=== PATIENT | female | born 1965 | race African-American/Black ===

== ENCOUNTER 2017-05-11 12:21 | Outpatient (CLI) | payer OTHER ==
--- NOTE | 2017-05-11 13:33 | ULT ---
RIGHT BREAST ULTRASOUND: History: Follow up right breast cyst. Comparison: 11-01-16 FINDINGS: The cystic appearing lesion at the 10 o'clock position 15 cm from the nipple noted on the previous e xam is no longer seen. No solid mass or other findings. IMPRESSION: Interval resolution of the complex cyst within the right breast. POS: OFF
== END 2017-05-11 12:22 | disposition home or self-care (01) ==
LOC: ULT 12:21
PROVIDERS: ATTEND Internal Medicine
DX: N60.01 Solitary cyst of right breast (principal)

== ENCOUNTER 2018-09-11 10:21 | Outpatient (CLI) | payer OTHER ==
--- NOTE | 2018-09-11 12:01 | RAD ---
RIGHT KNEE THREE VIEWS: HISTORY: Right medial knee pain. COMPARISON: 10/10/2014 FINDINGS: The well corticated density medial to the medial femoral condyle, likely representing old injury to t he medial collateral ligament, is redemonstrated. There are mild degenerative changes. No acute fra cture, dislocation, or bony destruction is seen. A joint effusion is present. POS: OFF
== END 2018-09-11 10:22 | disposition home or self-care (01) ==
LOC: BICRAD 10:21
PROVIDERS: ATTEND Internal Medicine
DX: M25.561 Pain in right knee (principal)
CPT/HCPCS: 80053; 80061; 82607; 82728; 82746; 83036; 83540; 83550; 85025

== ENCOUNTER 2018-09-27 14:13 | Outpatient (CLI) | payer OTHER ==
--- NOTE | 2018-09-27 16:14 | MRI ---
MRI OF THE RIGHT KNEE: Date: 09-27-18 Provided Clinical History: Right knee pain. FINDINGS: Evaluation is limited by patient motion and patient body habitus. Proximal intact fibers of the anterior cruciate ligament are not identified and there is an abnormal horizontal course of the ACL on the sagittal images, compatible with prior proximal disruption. The p osterior cruciate ligament, medial collateral ligament, and lateral collateral ligamentous complex de monstrate an intact MR appearance, as does the extensor mechanism. There is complex tearing involving the body and posterior horn of the medial meniscus. The posterior horn of the medial meniscus appears diminutive, however, no definite meniscal displacement is identif ied. There is a complex tear involving the body of the lateral meniscus with probable adjacent paramenisca l cyst formation within the region of the lateral meniscal femoral recess. There is extensive articular cartilage loss involving the central weightbearing portions of both the medial and lateral femorotibial joints. There is largely cartilage absence involving large portions o f the articular cartilage, tricompartmental, notably at the median ridge and central weightbearing po rtions of the lateral arterial joint. There is prominent reactive marrow signal alteration within the lateral femoral condyle and lateral t ibial plateau. There is subcortical ====== change present involving the lateral tibial plateau. There is probable low grade osteochondral lesion at the posterior aspect of the lateral femoral condyle me asuring about 11 mm. There is conspicuous red marrow reconversion involving the distal femur and to a lesser extent the pr oximal tibia. There is a large knee joint effusion. No focal concerning regional muscular signal abnormality is princess dent. IMPRESSION: 1. ACL insufficiency. 2. 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 3. Medial and lateral meniscal tears as above. 4. Large knee joint effusion. POS: OFF
--- NOTE | 2018-10-04 08:30 | MMO ---
Bilateral MAMMO Bilat Screen [facility]. CLINICAL HISTORY: Patient is 53 years old and is seen for screening. The patient has no family history of breast cancer. The patient has no personal history of cancer. VIEWS: The views performed were: bilateral craniocaudal; bilateral craniocaudal with tomosynthesis; bilateral mediolateral oblique; and bilateral mediolateral oblique with tomosynthesis. FILMS COMPARED: The present examination has been compared to prior imaging studies performed at [facility] on 10/10/2014, 12/17/2015 and 11/01/2016. MAMMOGRAM FINDINGS: There are scattered fibroglandular densities. There are no suspicious masses, calcifications or areas of architectural distortion. IMPRESSION: THERE IS NO MAMMOGRAPHIC EVIDENCE OF MALIGNANCY. A ROUTINE FOLLOW-UP MAMMOGRAM IN 1 YEAR IS RECOMMENDED. THE RESULTS OF THIS EXAM WERE SENT TO THE PATIENT. ACR BI-RADS Category 1 - Negative MAMMOGRAPHY NOTE: 1. A negative mammogram report should not delay a biopsy if a dominant of clinically suspicious mass is present. 2. Approximately 10% to 15% of breast cancers are not detected by mammography. 3. Adenosis and dense breasts may obscure an underlying neoplasm.
== END 2018-09-27 14:14 | disposition home or self-care (01) ==
LOC: BICMRI 14:13
PROVIDERS: ATTEND Internal Medicine
DX: Z12.31 Encounter for screening mammogram for malignant neoplasm of breast (principal); M25.561 Pain in right knee; S83.271A Complex tear of lateral meniscus, current injury, right knee, initial encounter; S83.231A Complex tear of medial meniscus, current injury, right knee, initial encounter; M25.461 Effusion, right knee; M89.9 Disorder of bone, unspecified
CPT/HCPCS: 77063; 77067

== ENCOUNTER 2019-09-08 10:26 | Emergency (ER) | payer OTHER, SELFPAY ==
--- NOTE | 2019-09-08 11:20 | RAD ---
RIGHT KNEE FOUR VIEWS: HISTORY: Right knee pain. Rheumatoid arthritis. FINDINGS: There are arthritic changes of the knee. Changes are mainly related to lateral compartment joint spac e narrowing. There are some subchondral bony changes along the lateral femoral condyle. Could be an u nderlying insufficiency fracture, given the bony demineralization. Arthritic changes of the patellofe moral joint space are seen. No joint effusion. IMPRESSION: Moderate arthritic changes of the knee. POS: ROSELINE
[2019-09-08] MEDS ORDERED: Acetaminophen/Codeine 30-300mg Tablet ONE (12:46)
== END 2019-09-08 13:00 | disposition home or self-care (01) ==
LOC: ERS 10:26
DX: M17.11 Unilateral primary osteoarthritis, right knee (principal); I50.9 Heart failure, unspecified; Z79.899 Other long term (current) drug therapy

== ENCOUNTER 2019-10-03 09:10 | Outpatient (CLI) | payer OTHER ==
[2019-10-03 14:13] LABS: #Eosinphils 0.2 thou/uL (0.0-0.7); #Lymphocytes 1.7 thou/uL (1.20-3.40); #Monocytes 0.5 thou/uL (0.11-0.59); #Neutrophils 3.8 thou/uL (1.40-6.50); %Basophils 0.7 % (0.0-1.0); %Eosinophils 3.4 % (0.0-10.0); %Lymphocytes 26.9 % (21.0-51.0); %Monocytes 8.1 % (0.0-10.0); %Neutrophils 60.9 % (42.0-75.0); Mean Corpuscular HGB CONC 34.1 g/dL (32.0-36.0); Mean Corpuscular Hemoglobin 28.5 pg (27.0-31.0); Mean Corpuscular Volume 83.7 fL (78.0-98.0); Mean Platelet Volume 6.8 fL (7.4-10.4); Platelet Count 318 thou/uL (130-400); RBC Distribution Width 13.7 % (11.5-14.5); Red Blood Cell (RBC) Count 4.57 mill/uL (4.20-5.40); White Blood Cell (WBC) Count 6.3 thou/uL (4.8-10.8)
[2019-10-03 14:17] LABS: Prothrombin Time 12.7 SEC (12.0-14.7)
[2019-10-03 14:35] LABS: Anion Gap 13 mmol/L (10-20); BUN (Urea Nitrogen) 6 mg/dL (9.8-20.1); Calc. Creatinine Clearance 0 mL/min (70-130); Calcium 9.7 mg/dL (7.8-10.44); Carbon Dioxide 24 mmol/L (22-29); Chloride 108 mmol/L (98-107); Estimated GFR-MDRD Greater than 90; Glucose 84 mg/dL (70-105); Potassium 4.2 mmol/L (3.5-5.1); Sodium 141 mmol/L (136-145)
== END 2019-10-03 09:11 | disposition home or self-care (01) ==
LOC: LABBT 09:10
PROVIDERS: ATTEND Orthopaedic Surgery
DX: Z01.812 Encounter for preprocedural laboratory examination (principal); M17.11 Unilateral primary osteoarthritis, right knee
CPT/HCPCS: 80048; 85025; 85610; 87081

== ENCOUNTER 2019-10-03 13:30 | Inpatient (IN) | payer OTHER ==
[2019-10-15] MEDS ORDERED: Vancomycin 1.5 GRAM/300 ML BAG 1.5 GM/300 ML BAG ONE (06:00)
[2019-10-15] MEDS ORDERED: Sodium Chloride 0.9% 100 ML ONE (06:00)
[2019-10-15] MEDS ORDERED: Tranexamic Acid 1,000 MG/10 ML VIAL ONE (06:00)
[2019-10-15] MEDS ORDERED: Bupivacaine 0.25% HCL 30 ML VIAL ONE (06:28)
[2019-10-15] MEDS ORDERED: Midazolam HCl 2 mg/2 ml Vial ONE (06:34)
[2019-10-15] MEDS ORDERED: Lidocaine 1% (PF) 30 ML VIAL ONE (06:34)
[2019-10-15] MEDS ORDERED: Fentanyl 100 MCG/2 ML VIAL ONE ×4 (06:34→10:13)
[2019-10-15] MEDS ORDERED: Famotidine/PF 20 mg/2ml Vial ONE (06:39)
[2019-10-15] MEDS ORDERED: Promethazine HCl 25 MG/ML VIAL IM PRN ×3 (07:17→11:22)
[2019-10-15] MEDS ORDERED: Zolpidem Tartrate 5 MG TAB PO PRN ×2 (07:17→11:22)
[2019-10-15] MEDS ORDERED: Ropivacaine HCl/PF 250 ML in Premix Bag 1 BAG NERVE BLCK SCH (07:17)
[2019-10-15] MEDS ORDERED: Acetaminophen 325 MG TAB PO PRN ×2 (07:17→11:22)
[2019-10-15] MEDS ORDERED: Ketorolac Tromethamine 30 MG/ML VIAL IVP PRN ×2 (07:17→08:23)
[2019-10-15] MEDS ORDERED: Ondansetron PF 4 MG/2 ML Vial IVP PRN ×2 (07:17→11:22)
[2019-10-15] MEDS ORDERED: traMADol HCl 50 MG TAB PO PRN ×3 (07:17→11:22)
[2019-10-15] MEDS ORDERED: HYDROcodone/Acetaminophen 10/325 mg Tablet PO PRN ×2 (07:17)
[2019-10-15] MEDS ORDERED: Fentanyl 100 MCG/2 ML VIAL SLOW IVP PRN ×3 (07:18→11:22)
[2019-10-15] MEDS ORDERED: Lidocaine 1% w/Epinephrine 1:100K 20 ML VIAL ONE (07:59)
[2019-10-15] MEDS ORDERED: Promethazine HCl 25 MG/ML VIAL SLOW IVP PRN (08:23)
[2019-10-15] MEDS ORDERED: Meperidine HCl/PF 25 MG/ML VIAL SLOW IVP PRN (08:23)
[2019-10-15] MEDS ORDERED: PACU-Morphine 4MG/ML VIAL SLOW IVP PRN (08:23)
[2019-10-15] MEDS ORDERED: hydrALAZINE 20 MG/ML VIAL ONE ×3 (08:28→09:47)
--- NOTE | 2019-10-15 08:56 | HP ---
HISTORY OF PRESENT ILLNESS: Ms. Pedro Babin is a 54-year-old female, who presented with right knee pain that has lasted for several years. She says the pain is getting worse. She is having difficulty mobilizing and ambulating because of the pain. Pain is in the lateral aspect of her knee. She has failed conservative measures. Disrupting her sleep and activities. The patient has history of RA, history of heart failure. The patient has stopped her methotrexate as well as her Plaquenil. The patient's pain today is 10/10. She has been cleared by Cardiology. PAST MEDICAL HISTORY: Congestive heart failure, gastroesophageal reflux, hypertension, iron deficiency anemia, and previous negative HPV and biopsies. PAST SURGICAL HISTORY: Hysterectomy, tubal ligations. MEDICATIONS: Include; 1. Tylenol. 2. Lipitor. 3. Plaquenil. 4. Meloxicam. 5. Methotrexate. 6. Metoprolol. 7. Omeprazole. 8. Potassium. ALLERGIES: INCLUDE LATEX POWDERED GLOVES. SOCIAL HISTORY: The patient is a nonsmoker. 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 The patient denies illicit drug use. PHYSICAL EXAMINATION: GENERAL: Alert and oriented female, in no acute distress. EXTREMITIES: The patient has moderate valgus, which is correctable. She has lateral medial joint line tenderness. Pain with motion is 10 to 100 degrees. She has crepitus. Her ligaments appear stable. She is neurovascularly intact distally. She has tricompartmental changes with marginal osteophytes with valgus angulation. IMPRESSION: Arthritis, right knee. PLAN: I discussed with the patient due to failure of conservative measures, she desires to proceed right total knee arthroplasty. I discussed the risks and benefits of surgery to include, pain, scar, bleeding, infection, decreased range of motion and strength, fracture above or below the stem, failure of hardware, need for hardware removal, damage to vital structures, nerves, arteries, tendons, bone, loss of life or limb, blood clots, risk of anesthesia. The patient was screened, she was afebrile, no sick contacts for the last 3 weeks. She elects to proceed with surgery. Job ID: [id number] [facility]TDD
[2019-10-15] MEDS ORDERED: HYDROmorphone 2 MG/ML VIAL ONE (09:17)
[2019-10-15] MEDS ORDERED: Ketorolac Tromethamine 30 MG/ML VIAL ONE ×2 (09:17→10:01)
[2019-10-15] MEDS ORDERED: Ondansetron PF 4 MG/2 ML Vial ONE (10:01)
[2019-10-15] MEDS ORDERED: Ropivacaine 0.2% HCl/PF (40 MG/20 ML VIAL) ONE (10:01)
[2019-10-15] MEDS ORDERED: Lidocaine 1% PF 5 ML VIAL ONE (10:01)
[2019-10-15] MEDS ORDERED: PROPOFOL 200 MG/20 ML VIAL ONE (10:01)
[2019-10-15] MEDS ORDERED: Ropivacaine 0.5% HCl/PF (150 MG/30 ML VIAL) ONE (10:01)
[2019-10-15] MEDS ORDERED: EPINEPHrine 1 MG/10 ML Abboject SYRINGE ONE (10:01)
[2019-10-15] MEDS ORDERED: Dexamethasone 20 MG/5 ML VIAL ONE (10:01)
--- NOTE | 2019-10-15 10:09 | RAD ---
XR Knee Rt 2 View: 10/15/2019 9:42 AM CLINICAL INDICATION: Right total knee replacement COMPARISON: None. FINDINGS: Bones: No acute fracture is demonstrated. Joints: There is a right total knee prosthesis that projects in the expected position. There is intra -articular and scattered periarticular soft tissue gas consistent with patient's recent postoperative state.. Soft Tissue: No acute abnormality.. IMPRESSION: Postoperative right knee.
[2019-10-15 11:07] VITALS: BMI 49.7
[2019-10-15] MEDS ORDERED: diphenhydrAMINE 25 MG CAP PO PRN (11:22)
[2019-10-15] MEDS: Sodium Chloride 0.9% 1,000 ML IV SCH ×2 (13:11→23:18)
[2019-10-15] MEDS: CEFAZOLIN 2 GM in Premix Bag 1 BAG IVPB SCH ×2 (13:11→21:12)
--- NOTE | 2019-10-15 14:21 | OP ---
DATE OF PROCEDURE: 10/15/2019 PREOPERATIVE DIAGNOSIS: Right knee rheumatoid arthritis. POSTOPERATIVE DIAGNOSIS: Right knee rheumatoid arthritis. PROCEDURE PERFORMED: Right total knee arthroplasty. INDUSTRIAL STAFF NURSE: Nik Burkett PA-C ANESTHESIOLOGIST: Jaycee Card MD. ANESTHESIA: The patient received LMA with an adductor canal single-shot sciatic. ESTIMATED BLOOD LOSS: 100 mL. TOURNIQUET TIME: 71 minutes at 300 mmHg. ANTIBIOTICS: Ancef 2 g, vancomycin 1.5 g, and TXA 1 g. The patient had a Triathlon size #3 TR femur, a #2 tibial baseplate, two 9 mm X3 poly, and S27 patella X3. HISTORY OF PRESENT ILLNESS: The patient is a 54-year-old female, who presents with right knee pain. The patient has difficulty walking. Her pain is 10/10. She has difficulty mobilizing because of her pain. I discussed with the patient and family the risks and benefits of right total knee arthroplasty to include, pain, scar, bleeding, infection, damage to vital structures, decreased range of motion and strength, continued pain despite surgical intervention, loss of life or limb. The patient and family understood the risks and benefits of the procedure and elected to proceed. DESCRIPTION OF PROCEDURE: Time-out was performed designating the patient's right lower extremity as the operative site based on site, consent, and marking. After time-out, the patient's right lower extremity was prepped and draped in sterile fashion. Tourniquet was brought up and left for 71 minutes. Anterior midline approach, medial patellar arthrotomy was exposed. We did a medial soft tissue release and patellar fat pad and everted the patella before we mapped out the distal femur, cut 0 degrees varus and valgus and 4 degrees slope, 9 and 4, 9 medially and 4 laterally with 4 degrees anterior slope, removed the osteophytes, removed the bone. We then had the knee flexed, placed our pickle fork into position, put a 3 external rotation guide, mapped on the epicondyle. We cut and sized to a 3, cut all, pinned our tray, cut anterior, posterior, and chamfer cuts, removed the osteophytes. We placed our pickle fork in position, released our PCL. We put our pickle fork in place. We mapped out our tibia and pinned our tray into position. We mapped out our tibia and cut 4 and 2 laterally, 4 degrees posterior slope, removed the sliver. We decompressed the joint removing menisci and osteophytes. We pinned our size 2 tray into position, 9 poly, put the femur in position. We pivoted just a little internally to get good alignment of the femur and tibia. I liked the overall alignment of the entire limb. We flexed and extended varus and valgus, overall it was good. We everted the patella, cut down from 22 or 23 down to about 12 mm, we placed S27 patella, tracked well. After we drilled our lugs, we tracked well. We then everted and drilled our holes from our femur, cut our keel for our tibia, removed the implant, cemented our tibia and removed the excess cement and placed our poly, cemented our femur, removed excess cement and cemented our patella, removed excess cement, washed the joint to ensure removal of debride, and closed_the arthrotomy with #2 Vicryl, #2 Quill, 0 Quill, 2-0 Quill, and glue. The patient will be weightbearing as tolerated. The patient will be followed up in-house. Will need discharge to [facility] and will be admitted. Job ID: [id number] [facility]
--- NOTE | 2019-10-15 15:34 | PDOC.HOSPP ---
- Subjective Encounter Date: 10/15/19 Encounter Time: 15:33 Subjective: pt is admitted for right TKR, we are consulted for medical management Patient seen and examined. No new complaints. - Objective Vital Signs & Weight: Vital Signs (12 hours) Temp Pulse Resp BP Pulse Ox 10/15/19 10:45 97.9 F 97 18 93/62 96 Weight Weight 230 lb I&O: 10/14/19 10/15/19 10/16/19 06:59 06:59 06:59 Intake Total 50 Output Total 350 Balance -300 Additional Labs: old preoperative labs reviewed Radiology Reviewed by me: Yes Hospitalist ROS - Review of Systems ENT: denies: ear pain, ear discharge, nose pain, nose discharge, nose congestion , mouth pain, mouth swelling, throat pain, throat swelling, other Respiratory: denies: cough, dry, shortness of breath, hemoptysis, SOB with excertion, pleuritic pain, sputum, wheezing, other Cardiovascular: denies: chest pain, palpitations, orthopnea, paroxysmal noc. dyspnea, edema, light headedness, other Gastrointestinal: denies: nausea, vomiting, abdominal pain, diarrhea, constipation, melena, hematochezia, other Genitourinary: denies: dysuria, frequency, incontinence, hematuria, retention, other Musculoskeletal: denies: neck pain, shoulder pain, arm pain, back pain, hand pain, leg pain, foot pain, other - Medication Medications: Active Medications Generic Name Dose Route Start Last Admin Trade Name Freq PRN Reason Stop Dose Admin Cefazolin Sodium/Dextrose 2 gm 50 mls @ 100 mls/hr 10/15/19 14:00 10/15/19 13 :11 / Device IVPB 10/15/19 22:29 50 mls Q8HR JONEL Administration Sodium Chloride 1,000 mls @ 100 mls/hr 10/15/19 11:22 10/15/19 13:11 Normal Saline 0.9% IV 1,000 mls .Q10H JONEL Administration - Exam General Appearance: NAD, awake alert Eye: PERRL, anicteric sclera ENT: normocephalic atraumatic, no oropharyngeal lesions Neck: supple, symmetric, no JVD, no thyromegaly Heart: RRR, no murmur, no gallops, no rubs Respiratory: CTAB, no wheezes, no rales, no ronchi Gastrointestinal: soft, non-tender, non-distended, normal bowel sounds Extremities: no cyanosis, no clubbing Extremities - other findings: right knee with dressing, nerve block in place Skin: normal turgor, no lesions Neurological: no focal deficits Musculoskeletal: normal tone, normal strength Psychiatric: normal affect, normal behavior, A&O x 3 Hosp A/P (1) Status post total right knee replacement Code(s): Z96.651 - PRESENCE OF RIGHT ARTIFICIAL KNEE JOINT Status: Acute (2) Morbid obesity with BMI of 45.0-49.9, adult Code(s): E66.01 - MORBID (SEVERE) OBESITY DUE TO EXCESS CALORIES; Z68.42 - BODY MASS INDEX (BMI) 45.0-49.9, ADULT Status: Chronic (3) Hypertensive heart disease with heart failure Status: Chronic (4) Anemia, iron deficiency Code(s): D50.9 - IRON DEFICIENCY ANEMIA, UNSPECIFIED Status: Chronic (5) GERD (gastroesophageal reflux disease) Code(s): K21.9 - GASTRO-ESOPHAGEAL REFLUX DISEASE WITHOUT ESOPHAGITIS Status: Chronic (6) Chronic diastolic (congestive) heart failure Code(s): I50.32 - CHRONIC DIASTOLIC (CONGESTIVE) HEART FAILURE Status: Chronic (7) Rheumatoid arthritis Code(s): M06.9 - RHEUMATOID ARTHRITIS, UNSPECIFIED Status: Chronic - Plan old records reviewed/req, plan discussed w/ family, PT/OT medication reviewed, symptomatic care, supportive care, PT/OT as per [facility] protocol Home medication reconciled, nerve block as per anesthesia, aspirin for DVT prophylaxis pain control with pain meds as tolerated.
[2019-10-15] MEDS: HYDROcodone/Acetaminophen 10/325 mg Tablet PO PRN ×2 (17:20→23:41)
[2019-10-15] MEDS ORDERED: Vancomycin 1.5 GRAM/300 ML BAG 1.5 GM in Premix Bag 1 BAG IVPB SCH (18:00)
[2019-10-15] MEDS: Aspirin 81 mg Enteric Coated Tablet PO SCH (21:12)
[2019-10-15] MEDS: Atorvastatin Calcium 20 MG TAB PO SCH (21:12)
[2019-10-15] MEDS ORDERED: Potassium Chloride 10 MEQ TAB PO SCH (23:15)
[2019-10-16] MEDS: HYDROcodone/Acetaminophen 10/325 mg Tablet PO PRN ×4 (04:35→17:28)
[2019-10-16 06:07] LABS: Hemoglobin 10.8 g/dL (12.0-16.0); Mean Corpuscular HGB CONC 34.3 g/dL (32.0-36.0); Mean Corpuscular Hemoglobin 28.5 pg (27.0-31.0); Mean Corpuscular Volume 83.1 fL (78.0-98.0); Mean Platelet Volume 6.9 fL (7.4-10.4); Platelet Count 279 thou/uL (130-400); Red Blood Cell (RBC) Count 3.78 mill/uL (4.20-5.40)
[2019-10-16] MEDS: Aspirin 81 mg Enteric Coated Tablet PO SCH ×2 (07:40→20:21)
[2019-10-16] MEDS: Potassium Chloride 10 MEQ TAB PO SCH (07:40)
[2019-10-16] MEDS: Senokot S 8.6-50 MG TAB PO SCH ×2 (07:40→20:21)
[2019-10-16] MEDS: Ferrous Gluconate 324 MG TAB PO SCH ×2 (07:41→20:21)
[2019-10-16] MEDS: Multivitamin W/ Minerals 1 TAB PO SCH (07:41)
[2019-10-16] MEDS ORDERED: Potassium Chloride 10 MEQ TAB PO SCH (08:00)
[2019-10-16] MEDS ORDERED: FLU VACC QS2019-20(6MOS UP)/PF 60 MCG/0.5 ML SYRINGE IM ONE (09:00)
[2019-10-16] MEDS: Sodium Chloride 0.9% 1,000 ML IV SCH ×2 (11:24→18:53)
[2019-10-16] MEDS: Atorvastatin Calcium 20 MG TAB PO SCH (20:21)
[2019-10-17] MEDS: HYDROcodone/Acetaminophen 10/325 mg Tablet PO PRN ×5 (01:10→19:55)
[2019-10-17] MEDS: Sodium Chloride 0.9% 1,000 ML IV SCH ×2 (05:05→18:49)
[2019-10-17 05:33] LABS: Hemoglobin 9.8 g/dL (12.0-16.0); Mean Corpuscular HGB CONC 33.3 g/dL (32.0-36.0); Mean Corpuscular Hemoglobin 27.6 pg (27.0-31.0); Mean Corpuscular Volume 82.8 fL (78.0-98.0); Mean Platelet Volume 6.7 fL (7.4-10.4); Platelet Count 246 thou/uL (130-400); RBC Distribution Width 14.1 % (11.5-14.5); Red Blood Cell (RBC) Count 3.55 mill/uL (4.20-5.40); White Blood Cell (WBC) Count 7.2 thou/uL (4.8-10.8)
[2019-10-17] MEDS: Multivitamin W/ Minerals 1 TAB PO SCH (08:09)
[2019-10-17] MEDS: Senokot S 8.6-50 MG TAB PO SCH ×2 (08:09→19:56)
[2019-10-17] MEDS: Potassium Chloride 10 MEQ TAB PO SCH (08:09)
[2019-10-17] MEDS: Ferrous Gluconate 324 MG TAB PO SCH ×2 (08:09→19:56)
[2019-10-17] MEDS: Aspirin 81 mg Enteric Coated Tablet PO SCH ×2 (08:09→19:55)
--- NOTE | 2019-10-17 11:23 | PDOC.HOSPP ---
- Subjective Encounter Date: 10/16/19 Encounter Time: 10:15 Subjective: pt up in bed complains of pain to her right knee. - Objective Vital Signs & Weight: Vital Signs (12 hours) Temp Pulse Resp BP Pulse Ox 10/17/19 08:00 90 L 10/17/19 07:26 98.1 F 75 18 150/83 H 93 L 10/17/19 03:37 98.4 F 76 16 131/83 97 10/16/19 23:31 98.3 F 85 16 171/84 H 99 Weight Admit Weight 230 lb Weight 230 lb I&O: 10/16/19 10/17/19 10/18/19 06:59 06:59 06:59 Intake Total 1140 Output Total 1425 1300 Balance -285 -1300 Result Diagrams: 10/22/19 04:35 Hospitalist ROS - Review of Systems Cardiovascular: denies: chest pain, palpitations, orthopnea, paroxysmal noc. dyspnea, edema, light headedness, other Gastrointestinal: denies: nausea, vomiting, abdominal pain, diarrhea, constipation, melena, hematochezia, other Genitourinary: denies: dysuria, frequency, incontinence, hematuria, retention, other Musculoskeletal: reports: other (right knee pain) - Medication Medications: Active Medications Generic Name Dose Route Start Last Admin Trade Name Freq PRN Reason Stop Dose Admin Hydrocodone Bitart/Acetaminophen 1 tab 10/15/19 11:22 10/15/19 23:41 [place] 10/325 PO 1 tab Q4H PRN Administration Moderate Pain (4-6) Hydrocodone Bitart/Acetaminophen 2 tab 10/15/19 11:22 10/17/19 09:48 [place] 10/325 PO 2 tab Q4H PRN Administration Severe Pain (7-10) Aspirin 81 mg 10/15/19 21:00 10/17/19 08:09 Ecotrin PO 81 mg BID JONEL Administration Atorvastatin Calcium 20 mg 10/15/19 21:00 10/16/19 20:21 Lipitor PO 20 mg HS JONEL Administration Ferrous Gluconate 324 mg 10/16/19 09:00 10/17/19 08:09 Fergon PO 324 mg BID JONEL Administration Ropivacaine 250 ml/ Device 250 mls @ 10 mls/hr 10/15/19 07:17 10/16/19 10:23 NERVE BLCK 10/18/19 07:16 250 mls INF JONEL Administration Sodium Chloride 1,000 mls @ 100 mls/hr 10/15/19 11:22 10/17/19 05:05 Normal Saline 0.9% IV Not Given .Q10H JONEL Iron/Minerals/Multivitamins 1 tab 10/16/19 09:00 10/17/19 08:09 Theragran M PO 1 tab DAILY JONEL Administration Metoprolol Succinate 25 mg 10/16/19 09:00 10/17/19 08:09 Toprol Xl PO 25 mg DAILY JONEL Administration Pantoprazole Sodium 40 mg 10/16/19 09:00 10/17/19 08:09 Protonix PO 40 mg DAILY JONEL Administration Potassium Chloride 10 meq 10/16/19 08:00 10/17/19 08:09 Klor-Con 10 PO 10 meq QAM-WM JONEL Administration Senna/Docusate Sodium 2 tab 10/16/19 09:00 10/17/19 08:09 Senokot S PO 2 tab BID JONEL Administration - Exam Heart: negative: RRR, no murmur, no gallops, no rubs, normal peripheral pulses, irregular, diminshed peripheral pulses, murmur present, II/IV, III/IV Respiratory: negative: CTAB, no wheezes, no rales, no ronchi, normal chest expansion, no tachypnea, normal percussion, rales, rhonchi, tachypneic, wheezes Gastrointestinal: negative: soft, non-tender, non-distended, normal bowel sounds , no palpable masses, no hepatomegaly, no splenomegaly, no bruit, no guarding, no rigidity, tender to palpation, distended, diminished bowl sounds, voluntary guarding Extremities: 1+ LE edema Extremities - other findings: right knee dressing intact Hosp A/P (1) Status post total right knee replacement Code(s): Z96.651 - PRESENCE OF RIGHT ARTIFICIAL KNEE JOINT Status: Acute (2) Morbid obesity with BMI of 45.0-49.9, adult Code(s): E66.01 - MORBID (SEVERE) OBESITY DUE TO EXCESS CALORIES; Z68.42 - BODY MASS INDEX (BMI) 45.0-49.9, ADULT Status: Chronic (3) Rheumatoid arthritis Code(s): M06.9 - RHEUMATOID ARTHRITIS, UNSPECIFIED Status: Chronic (4) GERD (gastroesophageal reflux disease) Code(s): K21.9 - GASTRO-ESOPHAGEAL REFLUX DISEASE WITHOUT ESOPHAGITIS Status: Chronic - Plan pt has been holding on to her methotrexate and hydroxychloroquine since jul. I have told her that hydroxychloroquine should not interfere with her healing. she did not follow up with her model photographers'. will continue her home meds.
[2019-10-17] MEDS: Atorvastatin Calcium 20 MG TAB PO SCH (19:55)
[2019-10-18] MEDS: HYDROcodone/Acetaminophen 10/325 mg Tablet PO PRN ×5 (01:24→20:42)
[2019-10-18] MEDS: Sodium Chloride 0.9% 1,000 ML IV SCH ×3 (02:11→18:50)
[2019-10-18 05:42] LABS: Hemoglobin 9.3 g/dL (12.0-16.0); Mean Corpuscular HGB CONC 32.2 g/dL (32.0-36.0); Mean Corpuscular Hemoglobin 26.8 pg (27.0-31.0); Mean Corpuscular Volume 83.2 fL (78.0-98.0); Mean Platelet Volume 6.9 fL (7.4-10.4); Platelet Count 264 thou/uL (130-400); RBC Distribution Width 14.1 % (11.5-14.5); Red Blood Cell (RBC) Count 3.47 mill/uL (4.20-5.40); White Blood Cell (WBC) Count 7.4 thou/uL (4.8-10.8)
[2019-10-18] MEDS: Multivitamin W/ Minerals 1 TAB PO SCH (09:11)
[2019-10-18] MEDS: Potassium Chloride 10 MEQ TAB PO SCH (09:11)
[2019-10-18] MEDS: Aspirin 81 mg Enteric Coated Tablet PO SCH ×2 (09:11→20:42)
[2019-10-18] MEDS: Senokot S 8.6-50 MG TAB PO SCH ×2 (09:11→20:41)
[2019-10-18] MEDS: Ferrous Gluconate 324 MG TAB PO SCH ×2 (09:11→20:42)
--- NOTE | 2019-10-18 14:53 | PDOC.HOSPP ---
- Subjective Encounter Date: 10/18/19 Encounter Time: 08:20 Subjective: Pt seen for followup re: hypertension. No complaints today. - Objective Vital Signs & Weight: Vital Signs (12 hours) Temp Pulse Resp BP Pulse Ox 10/18/19 11:43 98.0 F 86 16 158/84 H 99 10/18/19 09:11 98 10/18/19 07:35 98.6 F 93 16 137/84 98 10/18/19 03:52 98.4 F 92 16 157/88 H 97 Weight Admit Weight 230 lb Weight 230 lb I&O: 10/17/19 10/18/19 10/19/19 06:59 06:59 06:59 Intake Total 400 Output Total 1300 Balance -1300 400 Result Diagrams: 10/19/19 06:11 Additional Labs: Labs and MARs reviewed by hi Hospitalist ROS - Review of Systems Respiratory: denies: cough, dry, shortness of breath, hemoptysis, SOB with excertion, pleuritic pain, sputum, wheezing Cardiovascular: denies: chest pain, palpitations, orthopnea, paroxysmal noc. dyspnea, edema, light headedness - Medication Medications: Active Medications Generic Name Dose Route Start Last Admin Trade Name Freq PRN Reason Stop Dose Admin Hydrocodone Bitart/Acetaminophen 1 tab 10/15/19 11:22 10/15/19 23:41 [place] 10/325 PO 1 tab Q4H PRN Administration Moderate Pain (4-6) Hydrocodone Bitart/Acetaminophen 2 tab 10/15/19 11:22 10/18/19 11:06 [place] 10/325 PO 2 tab Q4H PRN Administration Severe Pain (7-10) Aspirin 81 mg 10/15/19 21:00 10/18/19 09:11 Ecotrin PO 81 mg BID JONEL Administration Atorvastatin Calcium 20 mg 10/15/19 21:00 10/17/19 19:55 Lipitor PO 20 mg HS JONEL Administration Ferrous Gluconate 324 mg 10/16/19 09:00 10/18/19 09:11 Fergon PO 324 mg BID JONEL Administration Sodium Chloride 1,000 mls @ 100 mls/hr 10/15/19 11:22 10/18/19 09:15 Normal Saline 0.9% IV Not Given .Q10H JONEL Iron/Minerals/Multivitamins 1 tab 10/16/19 09:00 10/18/19 09:11 Theragran M PO 1 tab DAILY JONEL Administration Metoprolol Succinate 25 mg 10/16/19 09:00 10/18/19 09:11 Toprol Xl PO 25 mg DAILY JONEL Administration Pantoprazole Sodium 40 mg 10/16/19 09:00 10/18/19 09:11 Protonix PO 40 mg DAILY JONEL Administration Potassium Chloride 10 meq 10/16/19 08:00 10/18/19 09:11 Klor-Con 10 PO 10 meq QAM-WM JONEL Administration Senna/Docusate Sodium 2 tab 10/16/19 09:00 10/18/19 09:11 Senokot S PO 2 tab BID JONEL Administration Tramadol HCl 50 mg 10/15/19 07:17 10/18/19 09:11 Ultram PO 50 mg Q6H PRN Administration Mild Pain (1-3) - Exam General - other findings: Morbid obesity Eye: anicteric sclera ENT: moist mucosa Neck: supple Heart: RRR Respiratory: CTAB Gastrointestinal: soft, non-tender Extremities - other findings: s/p right knee surgery Psychiatric: normal affect, normal behavior Hosp A/P - Plan - Assessment (1) Hypertension Status: Chronic (2) Morbid obesity with BMI of 45.0-49.9, adult Code(s): E66.01 - MORBID (SEVERE) OBESITY DUE TO EXCESS CALORIES; Z68.42 - BODY MASS INDEX (BMI) 45.0-49.9, ADULT Status: Chronic (3) Rheumatoid arthritis Code(s): M06.9 - RHEUMATOID ARTHRITIS, UNSPECIFIED Status: Chronic (4) GERD (gastroesophageal reflux disease) Code(s): K21.9 - GASTRO-ESOPHAGEAL REFLUX DISEASE WITHOUT ESOPHAGITIS Status: Chronic - Plan HTN controlled. Rheumatoid arthritis stable. Pt awaiting Swing bed
[2019-10-18] MEDS: Atorvastatin Calcium 20 MG TAB PO SCH (20:42)
[2019-10-19] MEDS: HYDROcodone/Acetaminophen 10/325 mg Tablet PO PRN ×6 (01:16→21:03)
[2019-10-19] MEDS: Sodium Chloride 0.9% 1,000 ML IV SCH ×2 (05:33→14:55)
[2019-10-19 06:31] LABS: Hemoglobin 9.4 g/dL (12.0-16.0); Mean Corpuscular HGB CONC 32.7 g/dL (32.0-36.0); Mean Corpuscular Hemoglobin 27.2 pg (27.0-31.0); Mean Corpuscular Volume 83.2 fL (78.0-98.0); Mean Platelet Volume 6.7 fL (7.4-10.4); Platelet Count 305 thou/uL (130-400); RBC Distribution Width 14.1 % (11.5-14.5); Red Blood Cell (RBC) Count 3.47 mill/uL (4.20-5.40); White Blood Cell (WBC) Count 7.9 thou/uL (4.8-10.8)
[2019-10-19] MEDS: Multivitamin W/ Minerals 1 TAB PO SCH (07:59)
[2019-10-19] MEDS: Potassium Chloride 10 MEQ TAB PO SCH (07:59)
[2019-10-19] MEDS: Aspirin 81 mg Enteric Coated Tablet PO SCH ×2 (07:59→20:50)
[2019-10-19] MEDS: Ferrous Gluconate 324 MG TAB PO SCH ×2 (07:59→23:04)
[2019-10-19] MEDS: Senokot S 8.6-50 MG TAB PO SCH ×2 (07:59→20:53)
[2019-10-19] MEDS ORDERED: Mag-Al 1200 mg/1200 mg/30 ML UDCUP PO PRN (13:17)
--- NOTE | 2019-10-19 14:45 | CON ---
DATE OF CONSULTATION: 10/19/2019 HISTORY OF PRESENT ILLNESS: Ms. Vasquez is a 54-year-old female who is obese, has history of rheumatoid arthritis. The patient underwent a right total knee arthroplasty on 10/15/2019. The patient has mother to take care of her at home. She has an elevator ramp which has a high-grade. She is currently in bed. She is working with therapy. PHYSICAL EXAMINATION: VITAL SIGNS: Temperature 97.8, pulse rate 77, respiratory rate 18, oxygen saturation 99, blood pressure 135/83. GENERAL: Alert and oriented female, in no acute distress. Neurovascularly intact. The patient's knee is stable. She has some difficulty with transfers. IMPRESSION: Status post total knee arthroplasty. ASSESSMENT/PLAN: Pending medical record, transfer to [facility] for swing bed. The patient will await her insurance clearance. Job ID: [id number]
--- NOTE | 2019-10-19 14:49 | PDOC.HOSPP ---
- Subjective Encounter Date: 10/19/19 Encounter Time: 08:00 Subjective: Pt seen for followup re: hypertension. c/o heartburn. No other complaints. - Objective Vital Signs & Weight: Vital Signs (12 hours) Temp Pulse Resp BP Pulse Ox 10/19/19 11:01 97.8 F 77 18 135/83 99 10/19/19 08:00 100 10/19/19 07:05 98.2 F 74 16 183/90 H 100 10/19/19 03:55 97.6 F 81 16 159/90 H 97 Weight Admit Weight 230 lb Weight 230 lb I&O: 10/18/19 10/19/19 10/20/19 06:59 06:59 06:59 Intake Total 400 1650 Balance 400 1650 Result Diagrams: 10/19/19 06:11 Additional Labs: Labs and investigations reviewed by tn Hospitalist ROS - Review of Systems Cardiovascular: denies: chest pain, palpitations, orthopnea, paroxysmal noc. dyspnea, edema, light headedness Gastrointestinal: reports: other (heartburn) - Medication Medications: Active Medications Generic Name Dose Route Start Last Admin Trade Name Freq PRN Reason Stop Dose Admin Hydrocodone Bitart/Acetaminophen 1 tab 10/15/19 11:22 10/15/19 23:41 [place] 10/325 PO 1 tab Q4H PRN Administration Moderate Pain (4-6) Hydrocodone Bitart/Acetaminophen 2 tab 10/15/19 11:22 10/19/19 13:42 [place] 10/325 PO 2 tab Q4H PRN Administration Severe Pain (7-10) Al Hydroxide/Mg Hydroxide 30 ml 10/19/19 13:17 10/19/19 13:43 Maalox PO 30 ml Q6H PRN Administration Heartburn or Indigestion Aspirin 81 mg 10/15/19 21:00 10/19/19 07:59 Ecotrin PO 81 mg BID JONEL Administration Atorvastatin Calcium 20 mg 10/15/19 21:00 10/18/19 20:42 Lipitor PO 20 mg HS JONEL Administration Ferrous Gluconate 324 mg 10/16/19 09:00 10/19/19 07:59 Fergon PO 324 mg BID JONEL Administration Sodium Chloride 1,000 mls @ 100 mls/hr 10/15/19 11:22 10/19/19 05:33 Normal Saline 0.9% IV Not Given .Q10H JONEL Iron/Minerals/Multivitamins 1 tab 10/16/19 09:00 10/19/19 07:59 Theragran M PO 1 tab DAILY JONEL Administration Metoprolol Succinate 25 mg 10/16/19 09:00 10/19/19 07:59 Toprol Xl PO 25 mg DAILY JONEL Administration Pantoprazole Sodium 40 mg 10/16/19 09:00 10/19/19 07:59 Protonix PO 40 mg DAILY JONEL Administration Potassium Chloride 10 meq 10/16/19 08:00 10/19/19 07:59 Klor-Con 10 PO 10 meq QAM-WM JONEL Administration Senna/Docusate Sodium 2 tab 10/16/19 09:00 10/19/19 07:59 Senokot S PO 2 tab BID JONEL Administration Tramadol HCl 50 mg 10/15/19 07:17 10/18/19 09:11 Ultram PO 50 mg Q6H PRN Administration Mild Pain (1-3) Triamcinolone Acetonide 0 gm 10/18/19 21:00 10/19/19 07:59 Kenalog 0.1% Ointment TOP 1 pk Q12HR JONEL Administration - Exam General Appearance: awake alert Eye: anicteric sclera ENT: moist mucosa Neck: supple, no thyromegaly Heart: RRR Respiratory: CTAB Gastrointestinal: soft, non-tender Psychiatric: normal affect, normal behavior Hosp A/P - Plan - Assessment (1) Hypertension Status: Chronic (2) Morbid obesity with BMI of 45.0-49.9, adult Code(s): E66.01 - MORBID (SEVERE) OBESITY DUE TO EXCESS CALORIES; Z68.42 - BODY MASS INDEX (BMI) 45.0-49.9, ADULT Status: Chronic (3) Rheumatoid arthritis Code(s): M06.9 - RHEUMATOID ARTHRITIS, UNSPECIFIED Status: Chronic (4) GERD (gastroesophageal reflux disease) Code(s): K21.9 - GASTRO-ESOPHAGEAL REFLUX DISEASE WITHOUT ESOPHAGITIS Status: Chronic - Plan Start PRN Maalox HTN controlled. Rheumatoid arthritis stable. GERD stable. Pt awaiting Swing bed
[2019-10-19] MEDS: Atorvastatin Calcium 20 MG TAB PO SCH (20:51)
[2019-10-20] MEDS: HYDROcodone/Acetaminophen 10/325 mg Tablet PO PRN ×5 (01:28→21:35)
[2019-10-20 05:22] LABS: Hemoglobin 9.3 g/dL (12.0-16.0); Mean Corpuscular HGB CONC 33.3 g/dL (32.0-36.0); Mean Corpuscular Hemoglobin 27.8 pg (27.0-31.0); Mean Corpuscular Volume 83.6 fL (78.0-98.0); Mean Platelet Volume 6.7 fL (7.4-10.4); Platelet Count 305 thou/uL (130-400); RBC Distribution Width 14.1 % (11.5-14.5); Red Blood Cell (RBC) Count 3.36 mill/uL (4.20-5.40); White Blood Cell (WBC) Count 6.7 thou/uL (4.8-10.8)
[2019-10-20] MEDS: Sodium Chloride 0.9% 1,000 ML IV SCH ×3 (05:22→21:36)
[2019-10-20] MEDS: Ferrous Gluconate 324 MG TAB PO SCH ×2 (09:02→20:04)
[2019-10-20] MEDS: Aspirin 81 mg Enteric Coated Tablet PO SCH ×2 (09:02→20:04)
[2019-10-20] MEDS: Multivitamin W/ Minerals 1 TAB PO SCH (09:02)
[2019-10-20] MEDS: Potassium Chloride 10 MEQ TAB PO SCH (09:03)
[2019-10-20] MEDS: Senokot S 8.6-50 MG TAB PO SCH ×2 (09:03→20:04)
--- NOTE | 2019-10-20 11:24 | PDOC.HOSPP ---
- Subjective Encounter Date: 10/20/19 Encounter Time: 08:20 Subjective: Pt seen for followup re: HTN. States she feels better today. - Objective Vital Signs & Weight: Vital Signs (12 hours) Temp Pulse Resp BP Pulse Ox 10/20/19 07:04 98 F 76 16 143/79 H 94 L Weight Admit Weight 230 lb Weight 230 lb I&O: 10/19/19 10/20/19 10/21/19 06:59 06:59 06:59 Intake Total 1650 1100 Balance 1650 1100 Result Diagrams: 10/20/19 05:00 Additional Labs: Labs and MARs reviewed by tx Hospitalist ROS - Review of Systems Constitutional: denies: fever, chills, sweats, weakness, malaise Cardiovascular: denies: chest pain, palpitations, orthopnea, paroxysmal noc. dyspnea, edema, light headedness - Medication Medications: Active Medications Generic Name Dose Route Start Last Admin Trade Name Freq PRN Reason Stop Dose Admin Acetaminophen 650 mg 10/15/19 11:22 10/20/19 03:37 Tylenol PO 650 mg Q4H PRN Administration Headache/Fever/Mild Pain (1-3) Hydrocodone Bitart/Acetaminophen 1 tab 10/15/19 11:22 10/20/19 01:28 [place] 10/325 PO 1 tab Q4H PRN Administration Moderate Pain (4-6) Hydrocodone Bitart/Acetaminophen 2 tab 10/15/19 11:22 10/20/19 11:08 [place] 10/325 PO 2 tab Q4H PRN Administration Severe Pain (7-10) Al Hydroxide/Mg Hydroxide 30 ml 10/19/19 13:17 10/19/19 13:43 Maalox PO 30 ml Q6H PRN Administration Heartburn or Indigestion Aspirin 81 mg 10/15/19 21:00 10/20/19 09:02 Ecotrin PO 81 mg BID JONEL Administration Atorvastatin Calcium 20 mg 10/15/19 21:00 10/19/19 20:51 Lipitor PO 20 mg HS JONEL Administration Ferrous Gluconate 324 mg 10/16/19 09:00 10/20/19 09:02 Fergon PO 324 mg BID JONEL Administration Sodium Chloride 1,000 mls @ 100 mls/hr 10/15/19 11:22 10/20/19 05:22 Normal Saline 0.9% IV Not Given .Q10H JONEL Iron/Minerals/Multivitamins 1 tab 10/16/19 09:00 10/20/19 09:02 Theragran M PO 1 tab DAILY JONEL Administration Metoprolol Succinate 25 mg 10/16/19 09:00 10/20/19 09:02 Toprol Xl PO 25 mg DAILY JONEL Administration Pantoprazole Sodium 40 mg 10/16/19 09:00 10/20/19 09:02 Protonix PO 40 mg DAILY JONEL Administration Potassium Chloride 10 meq 10/16/19 08:00 10/20/19 09:03 Klor-Con 10 PO 10 meq QAM-WM JONEL Administration Senna/Docusate Sodium 2 tab 10/16/19 09:00 10/20/19 09:03 Senokot S PO Not Given BID JONEL Tramadol HCl 50 mg 10/15/19 07:17 10/18/19 09:11 Ultram PO 50 mg Q6H PRN Administration Mild Pain (1-3) Triamcinolone Acetonide 0 gm 10/18/19 21:00 10/20/19 09:04 Kenalog 0.1% Ointment TOP 1 pk Q12HR JONEL Administration - Exam Eye: anicteric sclera ENT: moist mucosa Neck: supple Heart: RRR Respiratory: CTAB, no wheezes Gastrointestinal: soft, non-tender Musculoskeletal: normal tone Musculoskeletal - other findings: s/p R knee surgery Hosp A/P - Plan - Assessment (1) Hypertension Status: Chronic (2) Morbid obesity with BMI of 45.0-49.9, adult Code(s): E66.01 - MORBID (SEVERE) OBESITY DUE TO EXCESS CALORIES; Z68.42 - BODY MASS INDEX (BMI) 45.0-49.9, ADULT Status: Chronic (3) Rheumatoid arthritis Code(s): M06.9 - RHEUMATOID ARTHRITIS, UNSPECIFIED Status: Chronic (4) GERD (gastroesophageal reflux disease) Code(s): K21.9 - GASTRO-ESOPHAGEAL REFLUX DISEASE WITHOUT ESOPHAGITIS Status: Chronic - Plan Heartburn resolved, continue PRN Maalox HTN controlled. Rheumatoid arthritis and GERD stable. Pt awaiting Swing bed
[2019-10-20] MEDS: Atorvastatin Calcium 20 MG TAB PO SCH (20:04)
[2019-10-21] MEDS: HYDROcodone/Acetaminophen 10/325 mg Tablet PO PRN ×6 (02:28→23:05)
[2019-10-21 04:53] LABS: Hemoglobin 9.4 g/dL (12.0-16.0); Mean Corpuscular HGB CONC 33.8 g/dL (32.0-36.0); Mean Corpuscular Hemoglobin 27.7 pg (27.0-31.0); Mean Corpuscular Volume 81.9 fL (78.0-98.0); Mean Platelet Volume 6.3 fL (7.4-10.4); Platelet Count 327 thou/uL (130-400); RBC Distribution Width 14.2 % (11.5-14.5); White Blood Cell (WBC) Count 6.7 thou/uL (4.8-10.8)
[2019-10-21] MEDS: Sodium Chloride 0.9% 1,000 ML IV SCH ×2 (08:24→17:33)
[2019-10-21] MEDS: Senokot S 8.6-50 MG TAB PO SCH ×2 (08:43→20:41)
[2019-10-21] MEDS: Aspirin 81 mg Enteric Coated Tablet PO SCH ×2 (08:43→20:41)
[2019-10-21] MEDS: Multivitamin W/ Minerals 1 TAB PO SCH (08:43)
[2019-10-21] MEDS: Potassium Chloride 10 MEQ TAB PO SCH (08:43)
[2019-10-21] MEDS: Ferrous Gluconate 324 MG TAB PO SCH ×2 (08:43→20:41)
--- NOTE | 2019-10-21 14:35 | PDOC.HOSPP ---
- Subjective Encounter Date: 10/21/19 Encounter Time: 08:20 Subjective: Pt seen for followup re: HTN. No complaints. - Objective Vital Signs & Weight: Vital Signs (12 hours) Temp Pulse Resp BP BP Pulse Ox 10/21/19 11:19 98.3 F 85 16 168/87 H 98 10/21/19 07:34 99.1 F 84 16 123/76 95 10/21/19 04:27 126/72 10/21/19 04:16 97.7 F 70 18 187/82 H 96 Weight Admit Weight 230 lb Weight 230 lb I&O: 10/20/19 10/21/19 10/22/19 06:59 06:59 06:59 Intake Total 1100 Balance 1100 Result Diagrams: 10/22/19 04:35 Additional Labs: Labs and MARs reviewed by co Hospitalist ROS - Review of Systems Cardiovascular: denies: chest pain, palpitations, orthopnea, paroxysmal noc. dyspnea, edema, light headedness Neurological: denies: weakness, numbness, incoordination, change in speech, confusion, seizures - Medication Medications: Active Medications Generic Name Dose Route Start Last Admin Trade Name Freq PRN Reason Stop Dose Admin Acetaminophen 650 mg 10/15/19 11:22 10/20/19 03:37 Tylenol PO 650 mg Q4H PRN Administration Headache/Fever/Mild Pain (1-3) Hydrocodone Bitart/Acetaminophen 1 tab 10/15/19 11:22 10/20/19 01:28 [place] 10/325 PO 1 tab Q4H PRN Administration Moderate Pain (4-6) Hydrocodone Bitart/Acetaminophen 2 tab 10/15/19 11:22 10/21/19 09:39 [place] 10/325 PO 2 tab Q4H PRN Administration Severe Pain (7-10) Al Hydroxide/Mg Hydroxide 30 ml 10/19/19 13:17 10/19/19 13:43 Maalox PO 30 ml Q6H PRN Administration Heartburn or Indigestion Aspirin 81 mg 10/15/19 21:00 10/21/19 08:43 Ecotrin PO 81 mg BID JONEL Administration Atorvastatin Calcium 20 mg 10/15/19 21:00 10/20/19 20:04 Lipitor PO 20 mg HS JONEL Administration Ferrous Gluconate 324 mg 10/16/19 09:00 10/21/19 08:43 Fergon PO 324 mg BID JONEL Administration Sodium Chloride 1,000 mls @ 100 mls/hr 10/15/19 11:22 10/21/19 08:24 Normal Saline 0.9% IV Not Given .Q10H JONEL Iron/Minerals/Multivitamins 1 tab 10/16/19 09:00 10/21/19 08:43 Theragran M PO 1 tab DAILY JONEL Administration Metoprolol Succinate 25 mg 10/16/19 09:00 10/21/19 08:43 Toprol Xl PO 25 mg DAILY JONEL Administration Pantoprazole Sodium 40 mg 10/16/19 09:00 10/21/19 08:43 Protonix PO 40 mg DAILY JONEL Administration Potassium Chloride 10 meq 10/16/19 08:00 10/21/19 08:43 Klor-Con 10 PO 10 meq QAM-WM JONEL Administration Senna/Docusate Sodium 2 tab 10/16/19 09:00 10/21/19 08:43 Senokot S PO Not Given BID JONEL Tramadol HCl 50 mg 10/15/19 07:17 10/18/19 09:11 Ultram PO 50 mg Q6H PRN Administration Mild Pain (1-3) Triamcinolone Acetonide 0 gm 10/18/19 21:00 10/21/19 08:45 Kenalog 0.1% Ointment TOP Not Given Q12HR JONEL - Exam General - other findings: Morbid obesity ENT: no oropharyngeal lesions, moist mucosa Neck: supple Heart: RRR, no gallops Respiratory: CTAB Gastrointestinal: soft, non-tender Skin: no rashes Psychiatric: normal affect, normal behavior Hosp A/P - Plan - Assessment (1) Hypertension Status: Chronic (2) Morbid obesity with BMI of 45.0-49.9, adult Code(s): E66.01 - MORBID (SEVERE) OBESITY DUE TO EXCESS CALORIES; Z68.42 - BODY MASS INDEX (BMI) 45.0-49.9, ADULT Status: Chronic (3) Rheumatoid arthritis Code(s): M06.9 - RHEUMATOID ARTHRITIS, UNSPECIFIED Status: Chronic (4) GERD (gastroesophageal reflux disease) Code(s): K21.9 - GASTRO-ESOPHAGEAL REFLUX DISEASE WITHOUT ESOPHAGITIS Status: Chronic - Plan HTN controlled. Rheumatoid arthritis and GERD stable. Pt awaiting Swing bed at [place]
[2019-10-21] MEDS: Atorvastatin Calcium 20 MG TAB PO SCH (20:41)
[2019-10-22] MEDS: HYDROcodone/Acetaminophen 10/325 mg Tablet PO PRN ×4 (04:10→19:40)
[2019-10-22] MEDS: Sodium Chloride 0.9% 1,000 ML IV SCH ×2 (04:10→11:23)
[2019-10-22 04:57] LABS: Hemoglobin 9.6 g/dL (12.0-16.0); Mean Corpuscular Hemoglobin 27.7 pg (27.0-31.0); Mean Corpuscular Volume 83.7 fL (78.0-98.0); Mean Platelet Volume 6.3 fL (7.4-10.4); Platelet Count 365 thou/uL (130-400); RBC Distribution Width 14.4 % (11.5-14.5); Red Blood Cell (RBC) Count 3.47 mill/uL (4.20-5.40); White Blood Cell (WBC) Count 6.5 thou/uL (4.8-10.8)
[2019-10-22] MEDS: Senokot S 8.6-50 MG TAB PO SCH (08:34)
[2019-10-22] MEDS: Ferrous Gluconate 324 MG TAB PO SCH (08:34)
[2019-10-22] MEDS: Potassium Chloride 10 MEQ TAB PO SCH (08:34)
[2019-10-22] MEDS: Aspirin 81 mg Enteric Coated Tablet PO SCH (08:34)
[2019-10-22] MEDS: Multivitamin W/ Minerals 1 TAB PO SCH (08:34)
[2019-10-22 19:40] VITALS: BP 137/83; TEMP 98.1
--- NOTE | 2019-10-24 06:22 | PDOC.HOSPP ---
- Subjective Encounter Date: 10/18/19 Encounter Time: 11:45 Subjective: pt up in bed no complains. she wants to go to swing bed for rehab. - Objective Vital Signs & Weight: Weight Admit Weight 230 lb Weight 230 lb I&O: 10/22/19 10/23/19 10/24/19 06:59 06:59 06:59 Intake Total 2150 1275 Balance 2150 1275 Result Diagrams: 10/22/19 04:35 Hospitalist ROS - Review of Systems Cardiovascular: denies: chest pain, palpitations, orthopnea, paroxysmal noc. dyspnea, edema, light headedness, other Gastrointestinal: denies: nausea, vomiting, abdominal pain, diarrhea, constipation, melena, hematochezia, other Genitourinary: denies: dysuria, frequency, incontinence, hematuria, retention, other - Exam Heart: negative: RRR, no murmur, no gallops, no rubs, normal peripheral pulses, irregular, diminshed peripheral pulses, murmur present, II/IV, III/IV Respiratory: negative: CTAB, no wheezes, no rales, no ronchi, normal chest expansion, no tachypnea, normal percussion, rales, rhonchi, tachypneic, wheezes Gastrointestinal: negative: soft, non-tender, non-distended, normal bowel sounds , no palpable masses, no hepatomegaly, no splenomegaly, no bruit, no guarding, no rigidity, tender to palpation, distended, diminished bowl sounds, voluntary guarding Extremities: negative: no cyanosis, no clubbing, no edema, 1+ LE edema, 2+ LE edema, clubbing Hosp A/P (1) Status post total right knee replacement Code(s): Z96.651 - PRESENCE OF RIGHT ARTIFICIAL KNEE JOINT Status: Acute (2) Morbid obesity with BMI of 45.0-49.9, adult Code(s): E66.01 - MORBID (SEVERE) OBESITY DUE TO EXCESS CALORIES; Z68.42 - BODY MASS INDEX (BMI) 45.0-49.9, ADULT Status: Chronic (3) Rheumatoid arthritis Code(s): M06.9 - RHEUMATOID ARTHRITIS, UNSPECIFIED Status: Chronic (4) GERD (gastroesophageal reflux disease) Code(s): K21.9 - GASTRO-ESOPHAGEAL REFLUX DISEASE WITHOUT ESOPHAGITIS Status: Chronic - Plan pt has been holding on to her methotrexate and hydroxychloroquine since jul. I have told her that hydroxychloroquine should not interfere with her healing. she did not follow up with her power tong operator. will continue her home meds. 10/16 spoke with pt again and she states she will think about restarting her hydroxychloroquine. for now she does not want to. vitals stable. will monitor.
== END 2019-10-22 19:45 | disposition swing bed (61) | DRG 470 ==
LOC: SURG A 10-15 05:38 → SJJU 10-15 10:59
PROVIDERS: ADMIT Orthopaedic Surgery; ATTEND Orthopaedic Surgery
PROC: 0SRC0J9 Replacement of Right Knee Joint with Synthetic Substitute, Cemented, Open Approach (ICD-10-PCS; principal; 2019-10-15)
DX: M17.11 Unilateral primary osteoarthritis, right knee (principal); Z68.42 Body mass index [BMI] 45.0-49.9, adult; I50.32 Chronic diastolic (congestive) heart failure; D50.9 Iron deficiency anemia, unspecified; K21.9 Gastro-esophageal reflux disease without esophagitis; I11.0 Hypertensive heart disease with heart failure; E66.01 Morbid (severe) obesity due to excess calories; M06.9 Rheumatoid arthritis, unspecified; Z90.710 Acquired absence of both cervix and uterus; Z98.51 Tubal ligation status; Z79.899 Other long term (current) drug therapy; Z91.040 Latex allergy status; Z28.21 Immunization not carried out because of patient refusal; Z79.82 Long term (current) use of aspirin
CPT/HCPCS: 36415; 85027; C1713; C1776; J0171; J0360; J0690; J1100; J1170; J1885; J2001; J2250; J2405; J2704; J2795; J3010; J3490; S0020; S0028

== ENCOUNTER 2020-04-24 07:14 | Outpatient (CLI) | payer OTHER | END 2020-04-24 07:15 | disposition home or self-care (01) | LOC: LABBT 07:14 | PROVIDERS: ATTEND Orthopaedic Surgery | DX: Z01.810 Encounter for preprocedural cardiovascular examination (principal); M17.12 Unilateral primary osteoarthritis, left knee | CPT/HCPCS: 93005; 93010 ==

== ENCOUNTER 2020-05-14 07:52 | Outpatient (CLI) | payer OTHER ==
[2020-05-14 14:19] LABS: #Basophils 0.1 thou/uL (0.0-0.2); #Eosinphils 0.2 thou/uL (0.0-0.7); #Lymphocytes 1.6 thou/uL (1.20-3.40); #Monocytes 0.6 thou/uL (0.11-0.59); #Neutrophils 5.3 thou/uL (1.40-6.50); %Basophils 0.7 % (0.0-1.0); %Eosinophils 2.8 % (0.0-10.0); %Lymphocytes 20.5 % (21.0-51.0); %Monocytes 7.1 % (0.0-10.0); %Neutrophils 68.9 % (42.0-75.0); Hemoglobin 10.9 g/dL (12.0-16.0); Mean Corpuscular HGB CONC 33.4 g/dL (32.0-36.0); Mean Corpuscular Hemoglobin 26.8 pg (27.0-31.0); Mean Corpuscular Volume 80.3 fL (78.0-98.0); Mean Platelet Volume 6.7 fL (7.4-10.4); Platelet Count 340 thou/uL (130-400); RBC Distribution Width 14.6 % (11.5-14.5); Red Blood Cell (RBC) Count 4.07 mill/uL (4.20-5.40); White Blood Cell (WBC) Count 7.7 thou/uL (4.8-10.8)
[2020-05-14 14:36] LABS: Anion Gap 11 mmol/L (10-20); BUN (Urea Nitrogen) 9 mg/dL (9.8-20.1); Calc. Creatinine Clearance 0 mL/min (70-130); Calcium 8.5 mg/dL (7.8-10.44); Carbon Dioxide 27 mmol/L (22-29); Chloride 107 mmol/L (98-107); Estimated GFR-MDRD Greater than 90; Glucose 104 mg/dL (70-105); Potassium 4.2 mmol/L (3.5-5.1); Sodium 141 mmol/L (136-145)
[2020-05-14 18:55] LABS: SARS-CoV-2 MS2 Positive; SARS-CoV-2 N Gene Negative; SARS-CoV-2 S Gene Negative; SARS-CoV-2 by NAA Not Detected (NotDetected); SARS-CoV-2 orf1ab Negative
--- NOTE | 2020-05-16 16:51 | EKG ---
Test Reason : EKG Blood Pressure : / mmHG Vent. Rate : 088 BPM Atrial Rate : 088 BPM P-R Int : 146 ms QRS Dur : 078 ms QT Int : 374 ms P-R-T Axes : 054 032 038 degrees QTc Int : 452 ms Normal sinus rhythm Normal ECG No previous ECGs available Confirmed by DR. Claude CAMPOS ([id number]) on 05/16/2020 4:50:58 PM Referred By: BRET Confirmed By:DR. Claude CAMPOS
== END 2020-05-14 07:53 | disposition home or self-care (01) ==
LOC: LABBT 07:52
PROVIDERS: ATTEND Orthopaedic Surgery
DX: Z01.818 Encounter for other preprocedural examination (principal); Z20.828 Contact with and (suspected) exposure to other viral communicable diseases; M17.12 Unilateral primary osteoarthritis, left knee
CPT/HCPCS: 80048; 85025; 87081; 87635; 93005; 93010; U0003

== ENCOUNTER 2020-05-14 08:45 | Inpatient (IN) | payer OTHER ==
[2020-05-19] MEDS ORDERED: Fentanyl 100 MCG/2 ML VIAL ONE ×5 (05:53→12:25)
[2020-05-19] MEDS ORDERED: Tranexamic Acid 1,000 MG/10 ML VIAL ONE ×2 (06:17→09:19)
[2020-05-19] MEDS ORDERED: Vancomycin 1.5 GRAM/300 ML BAG ONE (06:17)
[2020-05-19] MEDS ORDERED: Sodium Chloride 0.9% 100 ML ONE (06:17)
[2020-05-19] MEDS ORDERED: Midazolam HCl 2 mg/2 ml Vial ONE (06:27)
[2020-05-19] MEDS ORDERED: Ondansetron PF 4 MG/2 ML Vial IVP PRN ×2 (07:30→11:14)
[2020-05-19] MEDS ORDERED: Zolpidem Tartrate 5 MG TAB PO PRN ×2 (07:30→11:14)
[2020-05-19] MEDS ORDERED: Promethazine HCl 25 MG/ML VIAL IM PRN ×3 (07:30→11:14)
[2020-05-19] MEDS ORDERED: traMADol HCl 50 MG TAB PO PRN ×2 (07:30)
[2020-05-19] MEDS ORDERED: HYDROcodone/Acetaminophen 5/325 mg Tablet PO PRN ×2 (07:30)
[2020-05-19] MEDS ORDERED: Fentanyl 100 MCG/2 ML VIAL SLOW IVP PRN ×3 (07:31→11:14)
[2020-05-19] MEDS ORDERED: Bupivacaine/Epinephrine 0.25% 30 ML VIAL ONE (07:51)
[2020-05-19] MEDS ORDERED: Ondansetron HCl/PF 4 MG/2 ML Vial IVP PRN (09:17)
[2020-05-19] MEDS ORDERED: Promethazine HCl 25 MG/ML VIAL SLOW IVP PRN (09:17)
[2020-05-19] MEDS ORDERED: Labetalol HCl 100 MG/20 ML VIAL ONE (09:28)
[2020-05-19] MEDS ORDERED: Ondansetron PF 4 MG/2 ML Vial ONE (09:28)
[2020-05-19] MEDS ORDERED: Bupivacaine HCl 0.5%/Epinephrine 1:200,000/PF 30 ml Vial ONE (09:28)
[2020-05-19] MEDS ORDERED: Ropivacaine 0.2% HCl/PF (40 MG/20 ML VIAL) ONE (09:28)
[2020-05-19] MEDS ORDERED: Dexamethasone 20 MG/5 ML VIAL ONE (09:28)
[2020-05-19] MEDS ORDERED: PROPOFOL 200 MG/20 ML VIAL ONE (09:28)
[2020-05-19] MEDS ORDERED: Metoprolol Tartrate 5 MG/5 ML VIAL ONE (09:28)
--- NOTE | 2020-05-19 09:39 | RAD ---
EXAM: 2 views of the left knee HISTORY: Knee arthroplasty COMPARISON: None FINDINGS: No knee effusion is seen. The patient is status post knee arthroplasty without perihardware lucency or fracture. Air in the soft tissues is from recent surgery. IMPRESSION: Status post knee arthroplasty without evidence of complication.
[2020-05-19] MEDS ORDERED: diphenhydrAMINE 25 MG CAP PO PRN (11:14)
[2020-05-19] MEDS ORDERED: Acetaminophen 325 MG TAB PO PRN (11:14)
[2020-05-19] MEDS ORDERED: Ketorolac Tromethamine 30 MG/ML VIAL IVP PRN (11:14)
[2020-05-19] MEDS ORDERED: Ferrous Gluconate 324 MG TAB PO SCH (11:45)
[2020-05-19] MEDS ORDERED: Multivitamin W/ Minerals 1 TAB PO SCH (11:45)
[2020-05-19] MEDS ORDERED: Senokot S 8.6-50 MG TAB PO SCH (11:45)
[2020-05-19] MEDS ORDERED: Aspirin 81 mg Enteric Coated Tablet PO SCH (11:45)
[2020-05-19 14:54] VITALS: BMI 46.7
[2020-05-19] MEDS ORDERED: Docusate 100 MG CAP PO PRN (15:38)
[2020-05-19] MEDS: Dextrose 5 %-0.45 % NaCl 1,000 ML IV SCH ×2 (15:45→23:21)
[2020-05-19] MEDS: Ketorolac Tromethamine 30 MG/ML VIAL IVP SCH ×3 (15:46→23:25)
[2020-05-19] MEDS: CEFAZOLIN 2 GM in Premix Bag 1 BAG IVPB SCH ×2 (15:51→21:16)
[2020-05-19] MEDS: HYDROcodone/Acetaminophen 10/325 mg Tablet PO PRN (16:22)
[2020-05-19] MEDS ORDERED: Vancomycin 1.5 GRAM/300 ML BAG 1.5 GM in Premix Bag 1 BAG IVPB SCH (18:00)
[2020-05-19] MEDS ORDERED: Labetalol HCl 100 MG/20 ML VIAL SLOW IVP PRN (18:14)
[2020-05-19] MEDS: Betamethasone Val 0.1% OINT 15 GM TUBE TOP SCH (18:23)
--- NOTE | 2020-05-19 20:43 | CON ---
DATE OF CONSULTATION: PRIMARY CARE PHYSICIAN: Dr. Woodard. CHIEF COMPLAINT: Total knee replacement, consultation for medical management. HISTORY OF PRESENT ILLNESS: The patient is a 54-year-old female with a past medical history significant for congestive heart failure, hypertension, rheumatoid arthritis, and iron-deficiency anemia, who presented for a planned total knee replacement today. We have been consulted for medical management by Dr. Huggins. The patient with no complaints upon examination and interview. She still has her nerve block in place and [place] in place until tomorrow. Her blood pressure has been running high even before surgery today. She denies any chest pain, abdominal pain, shortness of breath, or fever. PAST MEDICAL HISTORY: Congestive heart failure, rheumatoid arthritis, GERD, hypertension, and iron-deficiency anemia. PAST SURGICAL HISTORY: x2, tubal ligation, and right total knee replacement. ALLERGIES: POWDERS. MEDICATIONS: 1. Plaquenil 200 mg daily. 2. Tylenol Arthritis as needed. 3. Colace 100 mg twice a day as needed. 4. Lipitor 20 mg daily. 5. Aspirin 81 mg daily. 6. Folic acid 1 mg daily. 7. Fergon 324 mg every other day. 8. Meloxicam 15 mg daily. 9. Potassium chloride 10 mEq daily. 10. Omeprazole 20 mg as needed. 11. Theragran multivitamin one tab daily. 12. Toprol-XL 25 mg daily. SOCIAL HISTORY: The patient lives at home with her family. She denies any alcohol, tobacco, or drug use. FAMILY HISTORY: Mother with hyperlipidemia, family history of diabetes and cancer. REVIEW OF SYSTEMS: All other review of systems are negative unless noted in the HPI. PHYSICAL EXAMINATION: VITAL SIGNS: Blood pressure 171/83, pulse 83, and O2 saturation 97% on room air. GENERAL: Alert, oriented, no acute distress. Pleasant. HEENT: Head; atraumatic and normocephalic. Eyes; extraocular muscles are intact. PERRLA. RESPIRATORY: Clear to auscultation bilaterally. No rhonchi, no wheezes, no rales. CARDIOVASCULAR: Regular rate and rhythm. No murmurs, no rubs, no gallops. ABDOMEN: Soft, nontender, nondistended. No guarding. No rigidity. EXTREMITIES: Left knee wrapped with nerve block in place. No edema. No clubbing. Peripheral pulses are intact. NEURO: Moving all extremities. No focal deficits. LABORATORY DATA: Labs were obtained on May 14 prior to surgery. White blood cell 7.7, hemoglobin 10.9, hematocrit 32.7, and platelets 340. Sodium 141, potassium 4.2, BUN 9, creatinine 0.79, GFR greater than 90, and glucose 104. COVID swab negative. IMPRESSION AND PLAN: 1. Hypertension. Restart the patient on her home medications and add p.r.n. antihypertensives. Continue to monitor the patient's blood pressure every 4 hours until her blood pressure appears to be better managed. 2. Gastroesophageal reflux disease. 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 3. Rheumatoid arthritis. Restart the patient on her home medications. 4. The patient with SCDs in place for deep venous thrombosis prophylaxis. 5. The patient wishes to be a full code. Job ID: [id number]
[2020-05-19] MEDS: Senokot S 8.6-50 MG TAB PO SCH (21:16)
[2020-05-19] MEDS: Atorvastatin Calcium 20 MG TAB PO SCH (21:16)
[2020-05-19] MEDS: Ferrous Gluconate 324 MG TAB PO SCH (21:16)
[2020-05-19] MEDS: Aspirin 81 mg Enteric Coated Tablet PO SCH (21:16)
[2020-05-20] MEDS: HYDROcodone/Acetaminophen 10/325 mg Tablet PO PRN ×3 (00:47→20:35)
[2020-05-20] MEDS: Ketorolac Tromethamine 30 MG/ML VIAL IVP SCH ×4 (05:11→23:49)
[2020-05-20 05:14] LABS: #Lymphocytes 1.3 thou/uL (1.20-3.40); #Monocytes 1.3 thou/uL (0.11-0.59); %Basophils 0.3 % (0.0-1.0); %Lymphocytes 15.1 % (21.0-51.0); %Monocytes 14.5 % (0.0-10.0); %Neutrophils 70.1 % (42.0-75.0); Hemoglobin 10.4 g/dL (12.0-16.0); Mean Corpuscular HGB CONC 32.7 g/dL (32.0-36.0); Mean Corpuscular Hemoglobin 26.8 pg (27.0-31.0); Mean Corpuscular Volume 81.9 fL (78.0-98.0); Mean Platelet Volume 6.4 fL (7.4-10.4); Platelet Count 330 thou/uL (130-400); RBC Distribution Width 14.7 % (11.5-14.5); Red Blood Cell (RBC) Count 3.87 mill/uL (4.20-5.40); White Blood Cell (WBC) Count 8.6 thou/uL (4.8-10.8)
[2020-05-20 05:15] LABS: Hemoglobin 10.2 g/dL (12.0-16.0); Mean Corpuscular HGB CONC 32.9 g/dL (32.0-36.0); Mean Corpuscular Hemoglobin 26.9 pg (27.0-31.0); Mean Corpuscular Volume 81.9 fL (78.0-98.0); Mean Platelet Volume 6.4 fL (7.4-10.4); Platelet Count 333 thou/uL (130-400); RBC Distribution Width 14.8 % (11.5-14.5); White Blood Cell (WBC) Count 8.6 thou/uL (4.8-10.8)
[2020-05-20 05:22] LABS: Anion Gap 16 mmol/L (10-20); BUN (Urea Nitrogen) 15 mg/dL (9.8-20.1); Calc. Creatinine Clearance 127 mL/min (70-130); Calcium 8.6 mg/dL (7.8-10.44); Carbon Dioxide 18 mmol/L (22-29); Chloride 107 mmol/L (98-107); Estimated GFR-MDRD 83; Glucose 119 mg/dL (70-105); Potassium 4.5 mmol/L (3.5-5.1); Sodium 136 mmol/L (136-145)
[2020-05-20] MEDS: Meloxicam 15 MG TAB PO SCH (08:33)
[2020-05-20] MEDS: Potassium Chloride 10 MEQ TAB PO SCH (08:51)
[2020-05-20] MEDS: Multivitamin W/ Minerals 1 TAB PO SCH (08:52)
[2020-05-20] MEDS: Senokot S 8.6-50 MG TAB PO SCH ×2 (08:52→20:36)
[2020-05-20] MEDS: Aspirin 81 mg Enteric Coated Tablet PO SCH ×2 (08:52→20:36)
[2020-05-20] MEDS: Hydroxychloroquine Sulfate 200 MG TAB PO SCH (08:52)
[2020-05-20] MEDS: Folic Acid 1 MG TAB PO SCH (08:52)
[2020-05-20] MEDS: Ferrous Gluconate 324 MG TAB PO SCH ×2 (08:52→20:36)
[2020-05-20] MEDS: Ropivacaine HCl/PF 250 ML in Premix Bag 1 BAG NERVE BLCK SCH (11:31)
--- NOTE | 2020-05-20 11:59 | PDOC.HOSPP ---
- Subjective Encounter Date: 05/20/20 Encounter Time: 09:00 Subjective: Patient seen as a follow-up for medical management after a total knee replacement. Patient states she is feeling well and had no overnight events. She is scheduled to work with physical therapy today and to have her [place] r emoved. - Objective Vital Signs & Weight: Vital Signs (12 hours) Temp Pulse Resp BP Pulse Ox 05/20/20 11:05 98.2 F 71 18 165/93 H 100 05/20/20 08:52 98 05/20/20 07:20 98.0 F 71 18 156/84 H 98 05/20/20 04:27 97.9 F 67 18 167/91 H 97 05/20/20 00:36 97.9 F 72 18 172/78 H 97 Weight Admit Weight 238 lb Weight 238 lb I&O: 05/19/20 05/20/20 05/21/20 06:59 06:59 06:59 Intake Total 2853.25 Output Total 1000 Balance 1853.25 Result Diagrams: 05/20/20 04:47 05/20/20 04:47 Hospitalist ROS - Medication Medications: Active Medications Generic Name Dose Route Start Last Admin Trade Name Freq PRN Reason Stop Dose Admin Hydrocodone Bitart/Acetaminophen 1 tab 05/19/20 11:14 05/20/20 11:03 Hydrocodone/Acetaminophen 10/325 Mg Tablet PO 1 tab Q4H PRN Administration Moderate Pain (4-6) Aspirin 81 mg 05/19/20 21:00 05/20/20 08:52 Aspirin 81 Mg Enteric Coated Tablet PO 81 mg BID JONEL Administration Atorvastatin Calcium 20 mg 05/19/20 21:00 05/19/20 21:16 Atorvastatin Calcium 20 Mg Tab PO 20 mg HS JONEL Administration Betamethasone Valerate 0 gm 05/19/20 21:00 05/19/20 18:23 Betamethasone Roopa 0.1% Oint 15 Gm Tube TOP 1 applic BID JONEL Administration Ferrous Gluconate 324 mg 05/19/20 21:00 05/20/20 08:52 Ferrous Gluconate 324 Mg Tab PO 324 mg BID JONEL Administration Folic Acid 1 mg 05/20/20 09:00 05/20/20 08:52 Folic Acid 1 Mg Tab PO 1 mg DAILY JONEL Administration Hydroxychloroquine Sulfate 200 mg 05/20/20 09:00 05/20/20 08:52 Hydroxychloroquine Sulfate 200 Mg Tab PO 200 mg DAILY JONEL Administration Ropivacaine 250 ml/ Device 250 mls @ 10 mls/hr 05/19/20 07:30 05/20/20 11:31 NERVE BLCK 05/22/20 07:29 250 mls INF JONEL Administration Dextrose/Sodium Chloride 1,000 mls @ 100 mls/hr 05/19/20 11:14 05/19/20 23:21 D5 1/2 Ns IV Not Given .Q10H JONEL Iron/Minerals/Multivitamins 1 tab 05/20/20 09:00 05/20/20 08:52 Multivitamin W/ Minerals 1 Tab PO 1 tab DAILY JONEL Administration Ketorolac Tromethamine 30 mg 05/19/20 12:00 05/20/20 05:11 Ketorolac Tromethamine 30 Mg/Ml Vial IVP 05/21/20 06:01 30 mg Q6HR JONEL Administration Meloxicam 15 mg 05/20/20 09:00 05/20/20 08:33 Meloxicam 15 Mg Tab PO Not Given DAILY JONEL Metoprolol Succinate 25 mg 05/20/20 09:00 05/20/20 08:52 Metoprolol Succinate Xl 25 Mg Tab PO 25 mg DAILY JONEL Administration Potassium Chloride 10 meq 05/20/20 08:00 05/20/20 08:51 Potassium Chloride 10 Meq Tab PO 10 meq QAM-WM JONEL Administration Senna/Docusate Sodium 2 tab 05/19/20 21:00 05/20/20 08:52 Senokot S 8.6-50 Mg Tab PO 2 tab BID JONEL Administration - Exam General Appearance: NAD, awake alert Neck: supple, symmetric Heart: RRR, no murmur, no gallops, no rubs, normal peripheral pulses Respiratory: CTAB, no wheezes, no rales, no ronchi, normal chest expansion Gastrointestinal: soft, non-tender, non-distended, normal bowel sounds Hosp A/P - Plan Did not need to use as needed antihypertensives last night Patient restarted on home medications Continue to monitor vital signs every 4 hours Patient states her blood pressure is normally 130s to 140s systolically and that it is higher here due to movement and pain, will continue to monitor
[2020-05-20] MEDS: Betamethasone Val 0.1% OINT 15 GM TUBE TOP SCH ×2 (13:23→20:37)
[2020-05-20] MEDS: Dextrose 5 %-0.45 % NaCl 1,000 ML IV SCH ×2 (13:23→17:42)
[2020-05-20] MEDS: Atorvastatin Calcium 20 MG TAB PO SCH (20:35)
[2020-05-21] MEDS: Dextrose 5 %-0.45 % NaCl 1,000 ML IV SCH ×2 (02:13→13:59)
[2020-05-21] MEDS: HYDROcodone/Acetaminophen 10/325 mg Tablet PO PRN ×4 (03:54→23:26)
[2020-05-21 05:33] LABS: #Eosinphils 0.2 thou/uL (0.0-0.7); #Lymphocytes 1.9 thou/uL (1.20-3.40); #Monocytes 0.9 thou/uL (0.11-0.59); #Neutrophils 4.4 thou/uL (1.40-6.50); %Basophils 0.3 % (0.0-1.0); %Eosinophils 3.1 % (0.0-10.0); %Lymphocytes 25.1 % (21.0-51.0); %Monocytes 12.5 % (0.0-10.0); Hemoglobin 9.4 g/dL (12.0-16.0); Mean Corpuscular HGB CONC 33.3 g/dL (32.0-36.0); Mean Corpuscular Hemoglobin 26.8 pg (27.0-31.0); Mean Corpuscular Volume 80.5 fL (78.0-98.0); Mean Platelet Volume 6.2 fL (7.4-10.4); Platelet Count 294 thou/uL (130-400); RBC Distribution Width 14.8 % (11.5-14.5); White Blood Cell (WBC) Count 7.4 thou/uL (4.8-10.8)
[2020-05-21] MEDS: Ketorolac Tromethamine 30 MG/ML VIAL IVP SCH (05:34)
[2020-05-21 05:59] LABS: Anion Gap 13 mmol/L (10-20); BUN (Urea Nitrogen) 19 mg/dL (9.8-20.1); Calc. Creatinine Clearance 127 mL/min (70-130); Calcium 8.2 mg/dL (7.8-10.44); Carbon Dioxide 21 mmol/L (22-29); Chloride 109 mmol/L (98-107); Estimated GFR-MDRD 83; Glucose 114 mg/dL (70-105); Potassium 4.3 mmol/L (3.5-5.1); Sodium 139 mmol/L (136-145)
--- NOTE | 2020-05-21 09:54 | OP ---
DATE OF PROCEDURE: 05/19/2020 PREOPERATIVE DIAGNOSIS: Left knee rheumatoid arthritis, degenerative changes. POSTOPERATIVE DIAGNOSIS: Left knee rheumatoid arthritis, degenerative changes. PROCEDURE PERFORMED: Left total knee arthroplasty. [employer] SPECIAL AGENT: Nik Burkett PA-C ANESTHESIA: The patient received a LMA with a single shot sciatic, adductor canal catheter as well as 25 mL of Marcaine 0.25% with epinephrine. TOURNIQUET TIME: 74 minutes at 300 mmHg. ANTIBIOTICS: Ancef 2 g, vancomycin 1.5, TXA 1 g. ESTIMATED BLOOD LOSS: Patient had 100 mL blood loss. IMPLANTS: The patient had a [place] Triathlon femur size 3 with a size 2 tibial base plate, 9 CS poly, and the S27 patella. COMPLICATIONS: None. HISTORY OF PRESENT ILLNESS: Ms. Vasquez is a 54-year-old female status post right total knee arthroplasty. The patient's left knee is in pain. She has failed conservative measures, elects to proceed. I discussed the risks and benefits of left total knee to include pain, scar, bleeding, infection, damage to vital structures, decreased range of motion or strength, fracture to bilateral lower extremities, need for further surgeries, failure of procedure despite surgical intervention, damage to vital structures, loss of life or limb. The patient understood the risks and benefits and elected to proceed. DESCRIPTION OF PROCEDURE: Time-out was performed designating the patient's left lower extremity as the operative site based on site, consents, and marking. After time-out, the patient's left lower extremity was prepped and draped in a sterile fashion. Tourniquet was brought up and left for a total of 74 minutes. I made an anterior midline incision down through skin and fat, came down and exposed the patient's quadriceps tendon. We made a medial patellar arthrotomy, everted the patella and exposed the distal femur. We excised our fat pad, did a medial soft tissue release medially with cautery then bluntly. Being happy with the exposure of the distal femur, we mapped our distal femur cut at 10 and 6, 0 degrees of varus and valgus, 4 degrees of slope, moved os to the bone, placed our traction in position to protect our structures, placed our 3-degree external rotation guide and cut for a size 3, cut anterior and posterior and chamfer cuts, removed our block, removed bone osteophytes, small gouge in the medial femoral condyle was noted. After placing this, we placed our pickle fork in position, releasing our PCL and taking our ACL. We exposed the tibia, mapped the tibia out and cut in 2 and 3 with 4 degrees of posterior slope, removed the bone. We then placed a laminar drapery sewer hand. We did our osteophyte removal as well as our posterior decompression, removed our medial and lateral menisci, washed the joint out. We then placed our size 2 tibial tray in position, in line with tibial tubercle, pinned into position. After we placed our femur, we had to internally rotate it slightly to match our femur, placed a 9 poly, extended the knee, flexed with good overall rotation. We liked that. We everted our patella cut from about 23 down to 12, placed a symmetric 27 mm poly which tracked well as we cut our lugs, drilled for the pegs. We removed all implants. Before removing our implants, we drilled for a femur and placed a cut out keel, removed all implants, washed. We cemented our tibia, removed excess cement, placed our poly, placed our femur, removed the excess cement, extended the knee watching tracking of the patella, removed excess cement, washed, flexing the knee back up without any excess cement throughout the knee, washed the joint out again. We then started our closure of arthrotomy with #2 Vicryl. On closing distally, we actually noted a small rent in the lateral retinaculum. The tendon was intact. The lateral retinaculum was just peeled back. There was a vertical line which we were unsure of its origin. We sewed that back down on top of tendon and closing that plane with #1 Vicryl. We closed the rest of the arthrotomy with 2 StrataFix, closed subcu with 0 StrataFix, 2-0 StrataFix and glue for the skin. My assistant infant teacher helped with approach, retraction of strutures, alignment of components, implantation, and closure of wound. The patient may weightbear as tolerated and follow [facility] protocol, will be followed inhouse, may need to be [facility] postprocedure. Job ID: [id number] [facility]
[2020-05-21] MEDS: Aspirin 81 mg Enteric Coated Tablet PO SCH ×2 (10:09→20:01)
[2020-05-21] MEDS: Meloxicam 15 MG TAB PO SCH (10:09)
[2020-05-21] MEDS: Multivitamin W/ Minerals 1 TAB PO SCH (10:09)
[2020-05-21] MEDS: Ferrous Gluconate 324 MG TAB PO SCH ×2 (10:09→20:01)
[2020-05-21] MEDS: Potassium Chloride 10 MEQ TAB PO SCH (10:09)
[2020-05-21] MEDS: Folic Acid 1 MG TAB PO SCH (10:10)
[2020-05-21] MEDS: Senokot S 8.6-50 MG TAB PO SCH ×2 (10:11→20:02)
[2020-05-21] MEDS: Betamethasone Val 0.1% OINT 15 GM TUBE TOP SCH ×2 (10:12→20:02)
--- NOTE | 2020-05-21 10:46 | PDOC.HOSPP ---
- Subjective Encounter Date: 05/21/20 Encounter Time: 10:20 Subjective: Patient is seen this morning for follow-up after left total knee replacement. She is sitting up in a chair and states she is feeling well although in a little bit of pain. She states she had a good bowel movement this morning. Her blood pressures yesterday ranged from 130s to 140s systolically after a.m. medications. This morning she is a little high in the 170s however she has not received her blood pressure medications yet and she is awaiting pain medication. She [facility] - Objective Vital Signs & Weight: Vital Signs (12 hours) Temp Pulse Resp BP Pulse Ox 05/21/20 08:11 98.2 F 79 14 171/97 H 99 05/21/20 03:55 98.2 F 79 18 159/80 H 99 05/20/20 23:53 98.0 F 72 18 144/75 H 100 Weight Admit Weight 238 lb Weight 238 lb I&O: 05/20/20 05/21/20 05/22/20 06:59 06:59 06:59 Intake Total 2853.25 1822 Output Total 1000 900 Balance 1853.25 922 Result Diagrams: 05/21/20 05:13 05/21/20 05:13 Hospitalist ROS - Medication Medications: Active Medications Generic Name Dose Route Start Last Admin Trade Name Freq PRN Reason Stop Dose Admin Hydrocodone Bitart/Acetaminophen 1 tab 05/19/20 11:14 05/21/20 03:54 Hydrocodone/Acetaminophen 10/325 Mg Tablet PO 1 tab Q4H PRN Administration Moderate Pain (4-6) Hydrocodone Bitart/Acetaminophen 2 tab 05/19/20 11:14 05/21/20 10:10 Hydrocodone/Acetaminophen 10/325 Mg Tablet PO 2 tab Q4H PRN Administration Severe Pain (7-10) Aspirin 81 mg 05/19/20 21:00 05/21/20 10:09 Aspirin 81 Mg Enteric Coated Tablet PO 81 mg BID [facility]ON[facility] Administration Atorvastatin Calcium 20 mg 05/19/20 21:00 05/20/20 20:35 Atorvastatin Calcium 20 Mg Tab PO 20 mg HS JONEL Administration Betamethasone Valerate 0 gm 05/19/20 21:00 05/21/20 10:12 Betamethasone Roopa 0.1% Oint 15 Gm Tube TOP Not Given BID JONEL Ferrous Gluconate 324 mg 05/19/20 21:00 05/21/20 10:09 Ferrous Gluconate 324 Mg Tab PO 324 mg BID JONEL Administration Folic Acid 1 mg 05/20/20 09:00 05/21/20 10:10 Folic Acid 1 Mg Tab PO 1 mg DAILY [facility] Administration Hydroxychloroquine Sulfate 200 mg 05/20/20 09:00 05/20/20 08:52 Hydroxychloroquine Sulfate 200 Mg Tab PO 200 mg DAILY [facility] Administration Ropivacaine 250 ml/ Device 250 mls @ 10 mls/hr 05/19/20 07:30 05/20/20 11:31 NERVE BLCK 05/22/20 07:29 250 mls INF JONEL Administration Dextrose/Sodium Chloride 1,000 mls @ 100 mls/hr 05/19/20 11:14 05/21/20 02:13 D5 1/2 Ns IV Not Given .Q10H JONEL Iron/Minerals/Multivitamins 1 tab 05/20/20 09:00 05/21/20 10:09 Multivitamin W/ Minerals 1 Tab PO 1 tab DAILY [facility] Administration Meloxicam 15 mg 05/20/20 09:00 05/21/20 10:09 Meloxicam 15 Mg Tab PO 15 mg DAILY [facility] Administration Metoprolol Succinate 25 mg 05/20/20 09:00 05/21/20 10:10 Metoprolol Succinate Xl 25 Mg Tab PO 25 mg DAILY [facility] Administration Potassium Chloride 10 meq 05/20/20 08:00 05/21/20 10:09 Potassium Chloride 10 Meq Tab PO 10 meq QAM-WM [facility] Administration Senna/Docusate Sodium 2 tab 05/19/20 21:00 05/21/20 10:11 Senokot S 8.6-50 Mg Tab PO Not Given BID [facility] - Exam General Appearance: NAD, awake alert Neck: supple Heart: RRR, no murmur, no gallops, no rubs, normal peripheral pulses Respiratory: CTAB, no wheezes, no rales, no ronchi, normal chest expansion Gastrointestinal: soft, non-tender, non-distended, normal bowel sounds Musculoskeletal: generalized weakness Psychiatric: normal affect, normal behavior Hosp A/P - Plan Did not need to use as needed antihypertensives last night Patient doing well on home medications Continue to monitor vital signs every 4 hours Patient requested to have her [place] stay in overnight, should be removed today
[2020-05-21] MEDS: Ropivacaine HCl/PF 250 ML in Premix Bag 1 BAG NERVE BLCK SCH (13:57)
[2020-05-21] MEDS: Hydroxychloroquine Sulfate 200 MG TAB PO SCH (17:42)
[2020-05-21] MEDS: Atorvastatin Calcium 20 MG TAB PO SCH (20:01)
[2020-05-22] MEDS: Dextrose 5 %-0.45 % NaCl 1,000 ML IV SCH ×3 (00:04→19:14)
[2020-05-22] MEDS: HYDROcodone/Acetaminophen 10/325 mg Tablet PO PRN ×4 (03:51→20:51)
[2020-05-22 05:31] LABS: Hemoglobin 9.7 g/dL (12.0-16.0); Mean Corpuscular HGB CONC 32.4 g/dL (32.0-36.0); Mean Corpuscular Hemoglobin 26.5 pg (27.0-31.0); Mean Corpuscular Volume 81.9 fL (78.0-98.0); Mean Platelet Volume 6.3 fL (7.4-10.4); Platelet Count 322 thou/uL (130-400); RBC Distribution Width 14.8 % (11.5-14.5); Red Blood Cell (RBC) Count 3.63 mill/uL (4.20-5.40); White Blood Cell (WBC) Count 7.9 thou/uL (4.8-10.8)
[2020-05-22] MEDS: Betamethasone Val 0.1% OINT 15 GM TUBE TOP SCH ×2 (08:45→20:53)
[2020-05-22] MEDS: Potassium Chloride 10 MEQ TAB PO SCH (08:46)
[2020-05-22] MEDS: Meloxicam 15 MG TAB PO SCH (08:46)
[2020-05-22] MEDS: Folic Acid 1 MG TAB PO SCH (08:46)
[2020-05-22] MEDS: Aspirin 81 mg Enteric Coated Tablet PO SCH ×2 (08:46→20:50)
[2020-05-22] MEDS: Senokot S 8.6-50 MG TAB PO SCH ×2 (08:46→20:52)
[2020-05-22] MEDS: Ferrous Gluconate 324 MG TAB PO SCH ×2 (08:46→20:50)
[2020-05-22] MEDS: Multivitamin W/ Minerals 1 TAB PO SCH (08:47)
[2020-05-22] MEDS: Hydroxychloroquine Sulfate 200 MG TAB PO SCH (08:47)
--- NOTE | 2020-05-22 18:59 | PDOC.HOSPP ---
- Subjective Encounter Date: 05/22/20 Encounter Time: 16:00 Subjective: Patient seen for follow-up regarding hypertension. Denies chest pain or shortness of breath. - Objective Vital Signs & Weight: Vital Signs (12 hours) Temp Pulse Resp BP Pulse Ox 05/22/20 16:00 98.0 F 72 10 L 163/76 H 97 05/22/20 11:29 98.5 F 74 16 164/76 H 99 05/22/20 08:00 99 05/22/20 07:55 98.2 F 73 20 158/81 H 99 Weight Admit Weight 238 lb Weight 238 lb I&O: 05/21/20 05/22/20 05/23/20 06:59 06:59 06:59 Intake Total 1822 1580 Output Total 900 1600 170 Balance 922 -20 -170 Result Diagrams: 05/22/20 05:07 05/21/20 05:13 Additional Labs: Labs and MAR reviewed by de Hospitalist ROS - Review of Systems Cardiovascular: denies: chest pain, palpitations, orthopnea, paroxysmal noc. dyspnea, edema, light headedness Gastrointestinal: denies: nausea, vomiting, abdominal pain, diarrhea, constipation, melena, hematochezia - Medication Medications: Active Medications Generic Name Dose Route Start Last Admin Trade Name Freq PRN Reason Stop Dose Admin Hydrocodone Bitart/Acetaminophen 1 tab 05/19/20 11:14 05/22/20 15:32 Hydrocodone/Acetaminophen 10/325 Mg Tablet PO 1 tab Q4H PRN Administration Moderate Pain (4-6) Hydrocodone Bitart/Acetaminophen 2 tab 05/19/20 11:14 05/22/20 11:14 Hydrocodone/Acetaminophen 10/325 Mg Tablet PO 2 tab Q4H PRN Administration Severe Pain (7-10) Aspirin 81 mg 05/19/20 21:00 05/22/20 08:46 Aspirin 81 Mg Enteric Coated Tablet PO 81 mg BID JONEL Administration Atorvastatin Calcium 20 mg 05/19/20 21:00 05/21/20 20:01 Atorvastatin Calcium 20 Mg Tab PO 20 mg HS JONEL Administration Betamethasone Valerate 0 gm 05/19/20 21:00 05/22/20 08:45 Betamethasone Roopa 0.1% Oint 15 Gm Tube TOP 1 applic BID JONEL Administration Ferrous Gluconate 324 mg 05/19/20 21:00 05/22/20 08:46 Ferrous Gluconate 324 Mg Tab PO 324 mg BID [facility] Administration Folic Acid 1 mg 05/20/20 09:00 05/22/20 08:46 Folic Acid 1 Mg Tab PO 1 mg DAILY [facility] Administration Hydroxychloroquine Sulfate 200 mg 05/20/20 09:00 05/22/20 08:47 Hydroxychloroquine Sulfate 200 Mg Tab PO 200 mg DAILY JONEL Administration Dextrose/Sodium Chloride 1,000 mls @ 100 mls/hr 05/19/20 11:14 05/22/20 14:28 D5 1/2 Ns IV Not Given .Q10H [facility] Iron/Minerals/Multivitamins 1 tab 05/20/20 09:00 05/22/20 08:47 Multivitamin W/ Minerals 1 Tab PO 1 tab DAILY [facility] Administration Meloxicam 15 mg 05/20/20 09:00 05/22/20 08:46 Meloxicam 15 Mg Tab PO 15 mg DAILY [facility]ON[facility] Administration Metoprolol Succinate 25 mg 05/20/20 09:00 05/22/20 08:46 Metoprolol Succinate Xl 25 Mg Tab PO 25 mg DAILY [facility] Administration Pantoprazole Sodium 40 mg 05/19/20 15:41 05/21/20 13:57 Pantoprazole 40 Mg Tab PO 40 mg DAILY PRN Administration Heartburn or Indigestion Potassium Chloride 10 meq 05/20/20 08:00 05/22/20 08:46 Potassium Chloride 10 Meq Tab PO 10 meq QAM-WM [facility] Administration Senna/Docusate Sodium 2 tab 05/19/20 21:00 05/22/20 08:46 Senokot S 8.6-50 Mg Tab PO Not Given BID [facility] - Exam General - other findings: Morbid obesity Eye: anicteric sclera ENT: moist mucosa Neck: supple Heart: RRR Respiratory: CTAB Gastrointestinal: soft Extremities: no cyanosis Extremities - other findings: Status post left knee surgery Skin: no rashes Psychiatric: normal affect Hosp A/P (1) Hypertension Code(s): I10 - ESSENTIAL (PRIMARY) HYPERTENSION Status: Chronic (2) Dyslipidemia Code(s): E78.5 - HYPERLIPIDEMIA, UNSPECIFIED Status: Chronic (3) GERD (gastroesophageal reflux disease) Code(s): K21.9 - GASTRO-ESOPHAGEAL REFLUX DISEASE WITHOUT ESOPHAGITIS Status: Chronic (4) Morbid obesity with BMI of 45.0-49.9, adult Code(s): E66.01 - MORBID (SEVERE) OBESITY DUE TO EXCESS CALORIES; Z68.42 - BODY MASS INDEX [BMI] 45.0-49.9, ADULT Status: Chronic - Plan PT/OT Blood pressure still high, increase Toprol-XL to 37.5 mg daily. Gastroesophageal reflux disease is stable. Continue atorvastatin. Patient is awaiting swing bed.
[2020-05-22] MEDS: Atorvastatin Calcium 20 MG TAB PO SCH (20:49)
[2020-05-23] MEDS: HYDROcodone/Acetaminophen 10/325 mg Tablet PO PRN ×4 (03:47→20:23)
[2020-05-23] MEDS: Dextrose 5 %-0.45 % NaCl 1,000 ML IV SCH ×2 (05:39→14:13)
[2020-05-23 05:44] LABS: Hemoglobin 9.5 g/dL (12.0-16.0); Mean Corpuscular HGB CONC 32.2 g/dL (32.0-36.0); Mean Corpuscular Hemoglobin 26.6 pg (27.0-31.0); Mean Corpuscular Volume 82.4 fL (78.0-98.0); Mean Platelet Volume 6.3 fL (7.4-10.4); Platelet Count 321 thou/uL (130-400); RBC Distribution Width 14.8 % (11.5-14.5); Red Blood Cell (RBC) Count 3.59 mill/uL (4.20-5.40); White Blood Cell (WBC) Count 7.2 thou/uL (4.8-10.8)
[2020-05-23] MEDS: Multivitamin W/ Minerals 1 TAB PO SCH (10:09)
[2020-05-23] MEDS: Meloxicam 15 MG TAB PO SCH (10:09)
[2020-05-23] MEDS: Potassium Chloride 10 MEQ TAB PO SCH (10:09)
[2020-05-23] MEDS: Folic Acid 1 MG TAB PO SCH (10:10)
[2020-05-23] MEDS: Ferrous Gluconate 324 MG TAB PO SCH ×2 (10:10→20:23)
[2020-05-23] MEDS: Aspirin 81 mg Enteric Coated Tablet PO SCH ×2 (10:10→20:23)
[2020-05-23] MEDS: Senokot S 8.6-50 MG TAB PO SCH ×2 (10:11→22:00)
[2020-05-23] MEDS: Betamethasone Val 0.1% OINT 15 GM TUBE TOP SCH ×2 (10:11→22:00)
--- NOTE | 2020-05-23 15:55 | PDOC.HOSPP ---
- Subjective Encounter Date: 05/23/20 Encounter Time: 10:30 Subjective: Patient seen and examined for medical management. Denies any chest pain or shortness of breath. - Objective Vital Signs & Weight: Vital Signs (12 hours) Temp Pulse Resp BP Pulse Ox 05/23/20 15:32 98.6 F 75 16 166/79 H 98 05/23/20 11:55 98.7 F 62 16 152/84 H 98 05/23/20 07:48 98.3 F 77 16 169/81 H 98 Weight Admit Weight 238 lb Weight 238 lb I&O: 05/22/20 05/23/20 05/24/20 06:59 06:59 06:59 Intake Total 1580 484 Output Total 1600 170 Balance -20 314 Result Diagrams: 05/23/20 05:04 05/21/20 05:13 Hospitalist ROS - Review of Systems Cardiovascular: denies: chest pain, palpitations, orthopnea, paroxysmal noc. dyspnea, edema, light headedness, other Gastrointestinal: denies: nausea, vomiting, abdominal pain, diarrhea, constipation, melena, hematochezia, other - Medication Medications: Active Medications Generic Name Dose Route Start Last Admin Trade Name Freq PRN Reason Stop Dose Admin Hydrocodone Bitart/Acetaminophen 1 tab 05/19/20 11:14 05/22/20 15:32 Hydrocodone/Acetaminophen 10/325 Mg Tablet PO 1 tab Q4H PRN Administration Moderate Pain (4-6) Hydrocodone Bitart/Acetaminophen 2 tab 05/19/20 11:14 05/23/20 10:10 Hydrocodone/Acetaminophen 10/325 Mg Tablet PO 2 tab Q4H PRN Administration Severe Pain (7-10) Aspirin 81 mg 05/19/20 21:00 05/23/20 10:10 Aspirin 81 Mg Enteric Coated Tablet PO 81 mg BID JONEL Administration Atorvastatin Calcium 20 mg 05/19/20 21:00 05/22/20 20:49 Atorvastatin Calcium 20 Mg Tab PO 20 mg HS JONEL Administration Betamethasone Valerate 0 gm 05/19/20 21:00 05/23/20 10:11 Betamethasone Roopa 0.1% Oint 15 Gm Tube TOP Not Given BID JONEL Ferrous Gluconate 324 mg 05/19/20 21:00 05/23/20 10:10 Ferrous Gluconate 324 Mg Tab PO 324 mg BID JON[facility] Administration Folic Acid 1 mg 05/20/20 09:00 05/23/20 10:10 Folic Acid 1 Mg Tab PO 1 mg DAILY JONEL Administration Hydroxychloroquine Sulfate 200 mg 05/20/20 09:00 05/22/20 08:47 Hydroxychloroquine Sulfate 200 Mg Tab PO 200 mg DAILY JONEL Administration Dextrose/Sodium Chloride 1,000 mls @ 100 mls/hr 05/19/20 11:14 05/23/20 14:13 D5 1/2 Ns IV Not Given .Q10H [facility]ON[facility] Iron/Minerals/Multivitamins 1 tab 05/20/20 09:00 05/23/20 10:09 Multivitamin W/ Minerals 1 Tab PO 1 tab DAILY JON[facility] Administration Meloxicam 15 mg 05/20/20 09:00 05/23/20 10:09 Meloxicam 15 Mg Tab PO 15 mg DAILY JONEL Administration Metoprolol Succinate 37.5 mg 05/23/20 09:00 05/23/20 10:10 Metoprolol Succinate Xl 25 Mg Tab PO 37.5 mg DAILY JONEL Administration Pantoprazole Sodium 40 mg 05/19/20 15:41 05/21/20 13:57 Pantoprazole 40 Mg Tab PO 40 mg DAILY PRN Administration Heartburn or Indigestion Potassium Chloride 10 meq 05/20/20 08:00 05/23/20 10:09 Potassium Chloride 10 Meq Tab PO 10 meq QAM-WM [facility]ON[facility] Administration Senna/Docusate Sodium 2 tab 05/19/20 21:00 05/23/20 10:11 Senokot S 8.6-50 Mg Tab PO Not Given BID [facility] - Exam General Appearance: NAD Neck: supple Heart: RRR, no gallops Respiratory: no wheezes, no ronchi Gastrointestinal: soft, non-distended Extremities: no cyanosis Neurological: no new deficit Hosp A/P - Plan DVT proph w/SCDs Hypertension Rheumatoid arthritis Morbid obesity with a BMI of 46.7 GERD Hyperlipidemia Plan: Continue Plaquenil. Continue Lipitor with Toprol-XL. Continue physical therapy. Awaiting insurance authorization
[2020-05-23] MEDS: Hydroxychloroquine Sulfate 200 MG TAB PO SCH (16:46)
[2020-05-23] MEDS: Atorvastatin Calcium 20 MG TAB PO SCH (20:23)
[2020-05-24] MEDS: HYDROcodone/Acetaminophen 10/325 mg Tablet PO PRN ×4 (02:13→23:55)
[2020-05-24 05:32] LABS: Hemoglobin 9.4 g/dL (12.0-16.0); Mean Corpuscular HGB CONC 33.2 g/dL (32.0-36.0); Mean Corpuscular Hemoglobin 26.8 pg (27.0-31.0); Mean Corpuscular Volume 80.8 fL (78.0-98.0); Mean Platelet Volume 6.3 fL (7.4-10.4); Platelet Count 329 thou/uL (130-400); RBC Distribution Width 14.7 % (11.5-14.5); Red Blood Cell (RBC) Count 3.51 mill/uL (4.20-5.40); White Blood Cell (WBC) Count 7.8 thou/uL (4.8-10.8)
[2020-05-24] MEDS: Betamethasone Val 0.1% OINT 15 GM TUBE TOP SCH ×2 (08:14→20:02)
[2020-05-24] MEDS: Senokot S 8.6-50 MG TAB PO SCH ×2 (08:14→20:02)
[2020-05-24] MEDS: Hydroxychloroquine Sulfate 200 MG TAB PO SCH (08:56)
[2020-05-24] MEDS: Ferrous Gluconate 324 MG TAB PO SCH ×2 (08:57→20:02)
[2020-05-24] MEDS: Aspirin 81 mg Enteric Coated Tablet PO SCH ×2 (08:57→20:02)
[2020-05-24] MEDS: Potassium Chloride 10 MEQ TAB PO SCH (08:57)
[2020-05-24] MEDS: Meloxicam 15 MG TAB PO SCH (08:57)
[2020-05-24] MEDS: Folic Acid 1 MG TAB PO SCH (08:58)
[2020-05-24] MEDS: Multivitamin W/ Minerals 1 TAB PO SCH (08:59)
--- NOTE | 2020-05-24 15:07 | PDOC.HOSPP ---
- Subjective Encounter Date: 05/24/20 Encounter Time: 09:00 Subjective: Patient seen and examined for medical management. No chest pain or shortness of breath. No nausea vomiting. - Objective Vital Signs & Weight: Vital Signs (12 hours) Temp Pulse Resp BP BP Pulse Ox 05/24/20 11:40 98.8 F 80 16 150/84 H 97 05/24/20 07:40 98.4 F 74 16 172/83 H 96 05/24/20 04:16 98.3 F 80 16 137/77 96 Weight Admit Weight 238 lb Weight 238 lb I&O: 05/23/20 05/24/20 05/25/20 06:59 06:59 06:59 Intake Total 484 2760 Output Total 170 Balance 314 2760 Result Diagrams: 05/24/20 05:23 05/21/20 05:13 Hospitalist ROS - Review of Systems Respiratory: denies: cough, dry, shortness of breath, hemoptysis, SOB with excertion, pleuritic pain, sputum, wheezing, other Cardiovascular: denies: chest pain, palpitations, orthopnea, paroxysmal noc. dyspnea, edema, light headedness, other - Medication Medications: Active Medications Generic Name Dose Route Start Last Admin Trade Name Freq PRN Reason Stop Dose Admin Hydrocodone Bitart/Acetaminophen 1 tab 05/19/20 11:14 05/23/20 20:23 Hydrocodone/Acetaminophen 10/325 Mg Tablet PO 1 tab Q4H PRN Administration Moderate Pain (4-6) Hydrocodone Bitart/Acetaminophen 2 tab 05/19/20 11:14 05/24/20 08:59 Hydrocodone/Acetaminophen 10/325 Mg Tablet PO 2 tab Q4H PRN Administration Severe Pain (7-10) Aspirin 81 mg 05/19/20 21:00 05/24/20 08:57 Aspirin 81 Mg Enteric Coated Tablet PO 81 mg BID JONEL Administration Atorvastatin Calcium 20 mg 05/19/20 21:00 05/23/20 20:23 Atorvastatin Calcium 20 Mg Tab PO 20 mg HS JONEL Administration Betamethasone Valerate 0 gm 05/19/20 21:00 05/24/20 08:14 Betamethasone Roopa 0.1% Oint 15 Gm Tube TOP Not Given BID JONEL Ferrous Gluconate 324 mg 05/19/20 21:00 05/24/20 08:57 Ferrous Gluconate 324 Mg Tab PO 324 mg BID JON[facility] Administration Folic Acid 1 mg 05/20/20 09:00 05/24/20 08:58 Folic Acid 1 Mg Tab PO 1 mg DAILY [facility]ON[facility] Administration Hydroxychloroquine Sulfate 200 mg 05/20/20 09:00 05/24/20 08:56 Hydroxychloroquine Sulfate 200 Mg Tab PO 200 mg DAILY [facility]ON[facility] Administration Iron/Minerals/Multivitamins 1 tab 05/20/20 09:00 05/24/20 08:59 Multivitamin W/ Minerals 1 Tab PO 1 tab DAILY [facility] Administration Meloxicam 15 mg 05/20/20 09:00 05/24/20 08:57 Meloxicam 15 Mg Tab PO 15 mg DAILY [facility]ON[facility] Administration Metoprolol Succinate 37.5 mg 05/23/20 09:00 05/24/20 08:56 Metoprolol Succinate Xl 25 Mg Tab PO 37.5 mg DAILY [facility]ON[facility] Administration Pantoprazole Sodium 40 mg 05/19/20 15:41 05/21/20 13:57 Pantoprazole 40 Mg Tab PO 40 mg DAILY PRN Administration Heartburn or Indigestion Potassium Chloride 10 meq 05/20/20 08:00 05/24/20 08:57 Potassium Chloride 10 Meq Tab PO 10 meq QAM-WM [facility] Administration Senna/Docusate Sodium 2 tab 05/19/20 21:00 05/24/20 08:14 Senokot S 8.6-50 Mg Tab PO Not Given BID [facility] - Exam General Appearance: NAD Heart: RRR, no gallops Respiratory: no wheezes, no ronchi Gastrointestinal: soft, non-tender, normal bowel sounds Extremities: no cyanosis Neurological: no new deficit Hosp A/P - Plan DVT proph w/SCDs Hypertension Rheumatoid arthritis Morbid obesity with a BMI of 46.7 GERD Hyperlipidemia Plan: Continue Toprol-XL at current dose. Continue Lipitor. Continue Plaquenil and other medications as above. Patient is awaiting insurance authorization for [facility] facility placement. DVT prophylaxis.
[2020-05-24] MEDS: Atorvastatin Calcium 20 MG TAB PO SCH (20:02)
[2020-05-25 05:37] LABS: Mean Corpuscular Hemoglobin 26.8 pg (27.0-31.0); Mean Corpuscular Volume 81.1 fL (78.0-98.0); Mean Platelet Volume 6.6 fL (7.4-10.4); Platelet Count 378 thou/uL (130-400); RBC Distribution Width 14.7 % (11.5-14.5); Red Blood Cell (RBC) Count 3.74 mill/uL (4.20-5.40); White Blood Cell (WBC) Count 8.1 thou/uL (4.8-10.8)
[2020-05-25] MEDS: HYDROcodone/Acetaminophen 10/325 mg Tablet PO PRN (08:45)
[2020-05-25] MEDS: Multivitamin W/ Minerals 1 TAB PO SCH (08:47)
[2020-05-25] MEDS: Folic Acid 1 MG TAB PO SCH (08:47)
[2020-05-25] MEDS: Hydroxychloroquine Sulfate 200 MG TAB PO SCH (08:47)
[2020-05-25] MEDS: Aspirin 81 mg Enteric Coated Tablet PO SCH (08:47)
[2020-05-25] MEDS: Meloxicam 15 MG TAB PO SCH (08:47)
[2020-05-25] MEDS: Ferrous Gluconate 324 MG TAB PO SCH (08:48)
[2020-05-25] MEDS: Betamethasone Val 0.1% OINT 15 GM TUBE TOP SCH (08:48)
[2020-05-25] MEDS: Potassium Chloride 10 MEQ TAB PO SCH (08:48)
[2020-05-25] MEDS: Senokot S 8.6-50 MG TAB PO SCH (08:48)
--- NOTE | 2020-05-25 15:16 | PDOC.HOSPP ---
- Subjective Encounter Date: 05/25/20 Encounter Time: 09:30 Subjective: Patient seen and examined for medical management. No chest pain, shortness of breath, nausea, vomiting or palpitations. - Objective Vital Signs & Weight: Vital Signs (12 hours) Temp Pulse Resp BP Pulse Ox 05/25/20 10:46 98.3 F 73 16 156/77 H 95 05/25/20 08:35 97 05/25/20 07:28 98.3 F 81 18 158/83 H 97 05/25/20 03:42 78 144/85 H Weight Admit Weight 238 lb Weight 238 lb I&O: 05/24/20 05/25/20 05/26/20 06:59 06:59 06:59 Intake Total 2760 1500 Balance 2760 1500 Result Diagrams: 05/25/20 04:53 05/21/20 05:13 Hospitalist ROS - Review of Systems Respiratory: denies: cough, dry, shortness of breath, hemoptysis, SOB with excertion, pleuritic pain, sputum, wheezing, other Cardiovascular: denies: chest pain, palpitations, orthopnea, paroxysmal noc. dyspnea, edema, light headedness, other - Medication Medications: Active Medications Generic Name Dose Route Start Last Admin Trade Name Freq PRN Reason Stop Dose Admin Hydrocodone Bitart/Acetaminophen 1 tab 05/19/20 11:14 05/23/20 20:23 Hydrocodone/Acetaminophen 10/325 Mg Tablet PO 1 tab Q4H PRN Administration Moderate Pain (4-6) Hydrocodone Bitart/Acetaminophen 2 tab 05/19/20 11:14 05/25/20 08:45 Hydrocodone/Acetaminophen 10/325 Mg Tablet PO 2 tab Q4H PRN Administration Severe Pain (7-10) Aspirin 81 mg 05/19/20 21:00 05/25/20 08:47 Aspirin 81 Mg Enteric Coated Tablet PO 81 mg BID JONEL Administration Atorvastatin Calcium 20 mg 05/19/20 21:00 05/24/20 20:02 Atorvastatin Calcium 20 Mg Tab PO 20 mg HS JONEL Administration Betamethasone Valerate 0 gm 05/19/20 21:00 05/25/20 08:48 Betamethasone Roopa 0.1% Oint 15 Gm Tube TOP Not Given BID JONEL Ferrous Gluconate 324 mg 05/19/20 21:00 05/25/20 08:48 Ferrous Gluconate 324 Mg Tab PO 324 mg BID [facility] Administration Folic Acid 1 mg 05/20/20 09:00 05/25/20 08:47 Folic Acid 1 Mg Tab PO 1 mg DAILY [facility] Administration Hydroxychloroquine Sulfate 200 mg 05/20/20 09:00 05/25/20 08:47 Hydroxychloroquine Sulfate 200 Mg Tab PO 200 mg DAILY [facility] Administration Iron/Minerals/Multivitamins 1 tab 05/20/20 09:00 05/25/20 08:47 Multivitamin W/ Minerals 1 Tab PO 1 tab DAILY [facility] Administration Meloxicam 15 mg 05/20/20 09:00 05/25/20 08:47 Meloxicam 15 Mg Tab PO 15 mg DAILY [facility] Administration Metoprolol Succinate 37.5 mg 05/23/20 09:00 05/25/20 08:46 Metoprolol Succinate Xl 25 Mg Tab PO 37.5 mg DAILY [facility] Administration Pantoprazole Sodium 40 mg 05/19/20 15:41 05/21/20 13:57 Pantoprazole 40 Mg Tab PO 40 mg DAILY PRN Administration Heartburn or Indigestion Potassium Chloride 10 meq 05/20/20 08:00 05/25/20 08:48 Potassium Chloride 10 Meq Tab PO 10 meq QAM-WM [facility] Administration Senna/Docusate Sodium 2 tab 05/19/20 21:00 05/25/20 08:48 Senokot S 8.6-50 Mg Tab PO Not Given BID [facility] - Exam General Appearance: NAD Heart: RRR, no gallops, no rubs Respiratory: no wheezes, no rales Gastrointestinal: soft, non-tender, normal bowel sounds Extremities: no cyanosis Neurological: no new deficit Hosp A/P - Plan Hypertension Rheumatoid arthritis Morbid obesity with a BMI of 46.7 GERD Hyperlipidemia Plan: Blood pressure stable on Toprol-XL at 37.5 mg daily. Continue Lipitor. Continue Plaquenil for rheumatoid arthritis. Await placement. DVT prophylaxis per protocol. Continue physical therapy. Continue incentive spirometry.
[2020-05-25 15:17] VITALS: BP 160/81; TEMP 98.2
== END 2020-05-25 15:46 | disposition swing bed (61) | DRG 470 ==
LOC: SURG A 05-19 05:40
PROVIDERS: ADMIT Orthopaedic Surgery; ATTEND Orthopaedic Surgery
PROC: 0SRD0J9 Replacement of Left Knee Joint with Synthetic Substitute, Cemented, Open Approach (ICD-10-PCS; principal; 2020-05-19)
DX: M06.862 Other specified rheumatoid arthritis, left knee (principal); Z68.42 Body mass index [BMI] 45.0-49.9, adult; Z20.828 Contact with and (suspected) exposure to other viral communicable diseases; I50.9 Heart failure, unspecified; I11.0 Hypertensive heart disease with heart failure; D50.9 Iron deficiency anemia, unspecified; K21.9 Gastro-esophageal reflux disease without esophagitis; E66.01 Morbid (severe) obesity due to excess calories; E78.5 Hyperlipidemia, unspecified; Z79.899 Other long term (current) drug therapy; Z79.82 Long term (current) use of aspirin
CPT/HCPCS: 36415; 80048; 85025; 85027; C1713; C1776; J0690; J1100; J1885; J2250; J2405; J2704; J2795; J3010; J3370; J3490

== ENCOUNTER 2021-03-24 11:11 | Inpatient (IN) | payer MEDICARE ==
[2021-03-24] MEDS ORDERED: HYDROcodone/Acetaminophen 5/325 mg Tablet ONE (12:44)
[2021-03-24] MEDS ORDERED: Dextrose 50% Abboject 50 ML SYRINGE SLOW IVP PRN (14:02)
[2021-03-24] MEDS ORDERED: Morphine 4 MG/ML VIAL SLOW IVP PRN (14:02)
[2021-03-24] MEDS ORDERED: Dextrose 5% in Water 1,000 ML IV PRN (14:02)
[2021-03-24] MEDS ORDERED: Ondansetron PF 4 MG/2 ML Vial IVP PRN (14:02)
[2021-03-24 14:08] LABS: #Eosinphils 0.1 thou/uL (0.0-0.7); #Lymphocytes 1.2 thou/uL (1.20-3.40); #Monocytes 0.6 thou/uL (0.11-0.59); #Neutrophils 7.5 thou/uL (1.40-6.50); %Basophils 0.1 % (0.0-1.0); %Eosinophils 0.6 % (0.0-10.0); %Monocytes 6.6 % (0.0-10.0); %Neutrophils 79.6 % (42.0-75.0); Hemoglobin 11.8 g/dL (12.0-16.0); Mean Corpuscular HGB CONC 34.3 g/dL (32.0-36.0); Mean Corpuscular Hemoglobin 29.3 pg (27.0-31.0); Mean Corpuscular Volume 85.5 fL (78.0-98.0); Mean Platelet Volume 6.1 fL (7.4-10.4); Platelet Count 276 thou/uL (130-400); RBC Distribution Width 13.3 % (11.5-14.5); Red Blood Cell (RBC) Count 4.01 mill/uL (4.20-5.40); White Blood Cell (WBC) Count 9.4 thou/uL (4.8-10.8)
[2021-03-24 14:30] LABS: Magnesium 1.7 mg/dL (1.6-2.6)
[2021-03-24 14:31] LABS: ALT (SGPT) 8 U/L (8-55); AST (SGOT) 16 U/L (5-34); Albumin 3.6 g/dL (3.5-5.0); Alkaline Phosphatase 111 U/L (40-110); Anion Gap 14 mmol/L (10-20); BUN (Urea Nitrogen) 11 mg/dL (9.8-20.1); Bilirubin, Total 0.3 mg/dL (0.2-1.2); Calc. Creatinine Clearance 0 mL/min (70-130); Calcium 8.7 mg/dL (7.8-10.44); Carbon Dioxide 22 mmol/L (22-29); Chloride 108 mmol/L (98-107); Glucose 114 mg/dL (70-105); Phosphorus 2.9 mg/dL (2.3-4.7); Potassium 4.6 mmol/L (3.5-5.1); Protein, Total 7.6 g/dL (6.0-8.3); Sodium 139 mmol/L (136-145)
[2021-03-24] MEDS ORDERED: PHOS-NAK 1 PKT PACK PO SCH (14:45)
[2021-03-24] MEDS ORDERED: Magnesium 2 GM/50 ML 2 GM in Premix Bag 1 BAG IVPB SCH (14:45)
[2021-03-24] MEDS ORDERED: CEFAZOLIN 2 GM in Premix Bag 1 BAG IVPB SCH (15:00)
[2021-03-24] MEDS: Gabapentin 300 MG CAP PO SCH ×2 (17:30→21:36)
[2021-03-24] MEDS: Acetaminophen 500 MG TAB PO SCH (17:49)
[2021-03-24 18:36] VITALS: BMI 43.5
[2021-03-24] MEDS: Famotidine 20 MG TAB PO SCH (21:36)
[2021-03-24] MEDS: Senokot S 8.6-50 MG TAB PO SCH (21:36)
[2021-03-24] MEDS: hydrALAZINE 20 MG/ML VIAL SLOW IVP PRN (21:36)
[2021-03-24] MEDS: Ibuprofen 200 MG TAB PO SCH (21:38)
[2021-03-25] MEDS: Acetaminophen 500 MG TAB PO SCH ×4 (00:44→17:14)
[2021-03-25] MEDS: traMADol HCl 50 MG TAB PO PRN ×2 (04:20→17:14)
[2021-03-25] MEDS: Ibuprofen 200 MG TAB PO SCH ×3 (05:59→21:07)
[2021-03-25 07:02] LABS: Anion Gap 11 mmol/L (10-20); BUN (Urea Nitrogen) 9 mg/dL (9.8-20.1); Calc. Creatinine Clearance 139 mL/min (70-130); Calcium 8.9 mg/dL (7.8-10.44); Carbon Dioxide 24 mmol/L (22-29); Chloride 106 mmol/L (98-107); Glucose 100 mg/dL (70-105); Magnesium 1.7 mg/dL (1.6-2.6); Potassium 3.8 mmol/L (3.5-5.1); Sodium 137 mmol/L (136-145)
[2021-03-25] MEDS ORDERED: Magnesium 2 GM/50 ML 2 GM in Premix Bag 1 BAG IVPB SCH (07:30)
[2021-03-25] MEDS ORDERED: Potassium Phosphate 15 MMOL, Magnesium Sulfate 2 GM in Sodium Chloride 0.9% 250 ML 250 ML IVPB SCH (07:30)
[2021-03-25] MEDS: Famotidine 20 MG TAB PO SCH ×2 (08:35→21:06)
[2021-03-25] MEDS: Gabapentin 300 MG CAP PO SCH ×3 (08:35→21:06)
[2021-03-25 09:34] LABS: SARS-CoV-2 NAA Rapid Test Not Detected (NotDetected)
[2021-03-25] MEDS: Polyethylene Glycol 3350 17 GM Packet PO SCH (09:57)
[2021-03-25] MEDS: Senokot S 8.6-50 MG TAB PO SCH ×2 (09:57→21:07)
[2021-03-25] MEDS ORDERED: Lidocaine 2% Jelly 5 ML TUBE ONE (11:09)
[2021-03-25] MEDS ORDERED: Fentanyl 100 MCG/2 ML VIAL ONE ×2 (11:09→14:24)
[2021-03-25] MEDS ORDERED: PROPOFOL 200 MG/20 ML VIAL ONE (11:38)
[2021-03-25] MEDS ORDERED: Ondansetron PF 4 MG/2 ML Vial ONE (11:38)
[2021-03-25] MEDS ORDERED: Metoclopramide HCl 10 MG/2 ML VIAL ONE (11:38)
[2021-03-25] MEDS ORDERED: Lidocaine 1% PF 5 ML VIAL ONE (11:38)
[2021-03-25] MEDS ORDERED: Dexamethasone 20 MG/5 ML VIAL ONE (11:38)
[2021-03-25] MEDS ORDERED: Promethazine HCl 25 MG/ML VIAL IVPB PRN (14:20)
[2021-03-25] MEDS ORDERED: Ondansetron HCl/PF 4 MG/2 ML Vial IVP PRN (14:20)
[2021-03-25] MEDS ORDERED: Promethazine HCl 25 MG/ML VIAL IM PRN (14:20)
[2021-03-25] MEDS ORDERED: hydrALAZINE 20 MG/ML VIAL ONE (14:51)
[2021-03-25] MEDS: hydrALAZINE 20 MG/ML VIAL SLOW IVP PRN (16:05)
[2021-03-25] MEDS ORDERED: hydrALAZINE 20 MG/ML VIAL SLOW IVP SCH (16:45)
[2021-03-25] MEDS: CEFAZOLIN 2 GM in Premix Bag 1 BAG IVPB SCH (21:07)
[2021-03-26] MEDS: Acetaminophen 500 MG TAB PO SCH ×4 (00:14→18:18)
[2021-03-26] MEDS: CEFAZOLIN 2 GM in Premix Bag 1 BAG IVPB SCH (05:04)
[2021-03-26] MEDS: Ibuprofen 200 MG TAB PO SCH (05:05)
[2021-03-26 06:46] LABS: #Lymphocytes 1.1 thou/uL (1.20-3.40); #Monocytes 0.7 thou/uL (0.11-0.59); #Neutrophils 5.3 thou/uL (1.40-6.50); %Basophils 0.1 % (0.0-1.0); %Eosinophils 0.1 % (0.0-10.0); %Neutrophils 74.9 % (42.0-75.0); Hemoglobin 10.2 g/dL (12.0-16.0); Mean Corpuscular HGB CONC 33.9 g/dL (32.0-36.0); Mean Corpuscular Volume 85.5 fL (78.0-98.0); Mean Platelet Volume 6.4 fL (7.4-10.4); Platelet Count 272 thou/uL (130-400); RBC Distribution Width 13.4 % (11.5-14.5); Red Blood Cell (RBC) Count 3.53 mill/uL (4.20-5.40); White Blood Cell (WBC) Count 7.1 thou/uL (4.8-10.8)
[2021-03-26 07:17] LABS: Anion Gap 14 mmol/L (10-20); BUN (Urea Nitrogen) 21 mg/dL (9.8-20.1); Calc. Creatinine Clearance 79 mL/min (70-130); Calcium 8.2 mg/dL (7.8-10.44); Carbon Dioxide 21 mmol/L (22-29); Chloride 106 mmol/L (98-107); Glucose 149 mg/dL (70-105); Magnesium 2.4 mg/dL (1.6-2.6); Phosphorus 4.2 mg/dL (2.3-4.7); Potassium 4.5 mmol/L (3.5-5.1); Sodium 136 mmol/L (136-145)
[2021-03-26] MEDS ORDERED: Sodium Chloride 0.9% 1,000 ML IV SCH (08:00)
[2021-03-26] MEDS: Heparin 5,000 UNITS/ML VIAL SC SCH ×3 (08:46→21:10)
[2021-03-26] MEDS: Gabapentin 300 MG CAP PO SCH ×3 (08:47→21:10)
[2021-03-26] MEDS: Famotidine 20 MG TAB PO SCH (08:47)
[2021-03-26] MEDS: Senokot S 8.6-50 MG TAB PO SCH ×2 (08:49→21:09)
[2021-03-26] MEDS: Polyethylene Glycol 3350 17 GM Packet PO SCH (08:49)
[2021-03-26] MEDS: Cyclobenzaprine 10 MG TAB PO PRN ×2 (09:07→21:10)
[2021-03-27] MEDS: Acetaminophen 500 MG TAB PO SCH ×4 (06:07→17:46)
[2021-03-27 06:59] LABS: #Eosinphils 0.3 thou/uL (0.0-0.7); #Lymphocytes 2.3 thou/uL (1.20-3.40); #Neutrophils 3.5 thou/uL (1.40-6.50); %Basophils 0.3 % (0.0-1.0); %Eosinophils 4.6 % (0.0-10.0); %Lymphocytes 32.6 % (21.0-51.0); %Monocytes 13.6 % (0.0-10.0); %Neutrophils 48.9 % (42.0-75.0); Hemoglobin 9.5 g/dL (12.0-16.0); Mean Corpuscular HGB CONC 34.5 g/dL (32.0-36.0); Mean Corpuscular Hemoglobin 29.8 pg (27.0-31.0); Mean Corpuscular Volume 86.4 fL (78.0-98.0); Mean Platelet Volume 6.3 fL (7.4-10.4); Platelet Count 232 thou/uL (130-400); RBC Distribution Width 13.5 % (11.5-14.5); Red Blood Cell (RBC) Count 3.18 mill/uL (4.20-5.40); White Blood Cell (WBC) Count 7.2 thou/uL (4.8-10.8)
[2021-03-27 08:54] LABS: Anion Gap 10 mmol/L (10-20); BUN (Urea Nitrogen) 19 mg/dL (9.8-20.1); Calc. Creatinine Clearance 128 mL/min (70-130); Calcium 8.3 mg/dL (7.8-10.44); Carbon Dioxide 24 mmol/L (22-29); Chloride 109 mmol/L (98-107); Glucose 107 mg/dL (70-105); Magnesium 2.4 mg/dL (1.6-2.6); Phosphorus 2.8 mg/dL (2.3-4.7); Potassium 4.4 mmol/L (3.5-5.1); Sodium 139 mmol/L (136-145)
[2021-03-27] MEDS: Polyethylene Glycol 3350 17 GM Packet PO SCH (09:36)
[2021-03-27] MEDS: Gabapentin 300 MG CAP PO SCH ×3 (09:36→20:34)
[2021-03-27] MEDS: Senokot S 8.6-50 MG TAB PO SCH ×2 (09:36→20:34)
[2021-03-27] MEDS: Heparin 5,000 UNITS/ML VIAL SC SCH ×3 (09:37→20:34)
[2021-03-27] MEDS: traMADol HCl 50 MG TAB PO PRN ×2 (11:57→17:47)
[2021-03-27] MEDS: Cyclobenzaprine 10 MG TAB PO PRN (20:34)
[2021-03-28] MEDS: Acetaminophen 500 MG TAB PO SCH ×4 (00:26→18:21)
[2021-03-28] MEDS: traMADol HCl 50 MG TAB PO PRN ×3 (00:26→13:01)
[2021-03-28 07:17] LABS: Anion Gap 7 mmol/L (10-20); BUN (Urea Nitrogen) 13 mg/dL (9.8-20.1); Calc. Creatinine Clearance 170 mL/min (70-130); Calcium 8.4 mg/dL (7.8-10.44); Carbon Dioxide 27 mmol/L (22-29); Chloride 110 mmol/L (98-107); Glucose 97 mg/dL (70-105); Magnesium 2.4 mg/dL (1.6-2.6); Phosphorus 2.7 mg/dL (2.3-4.7); Potassium 4.4 mmol/L (3.5-5.1); Sodium 140 mmol/L (136-145)
[2021-03-28 08:21] LABS: Hemoglobin 9.4 g/dL (12.0-16.0); Mean Corpuscular HGB CONC 33.1 g/dL (32.0-36.0); Mean Corpuscular Volume 87.5 fL (78.0-98.0); Mean Platelet Volume 6.5 fL (7.4-10.4); Platelet Count 262 thou/uL (130-400); RBC Distribution Width 13.5 % (11.5-14.5); Red Blood Cell (RBC) Count 3.23 mill/uL (4.20-5.40); White Blood Cell (WBC) Count 5.6 thou/uL (4.8-10.8)
[2021-03-28] MEDS: Gabapentin 300 MG CAP PO SCH ×3 (10:12→21:30)
[2021-03-28] MEDS: Polyethylene Glycol 3350 17 GM Packet PO SCH (10:13)
[2021-03-28] MEDS: Heparin 5,000 UNITS/ML VIAL SC SCH ×3 (10:13→21:30)
[2021-03-28] MEDS: Senokot S 8.6-50 MG TAB PO SCH ×2 (10:13→21:35)
[2021-03-28 10:24] LABS: Band 10 % (5-11); Eosinophils 6 % (0-10); Lymphocytes 42 % (21-51); MDiff Complete? YES; Metamyelocyte 3 % (0-0); Monocytes 2 % (0-10); Neutrophil 35 % (42-75); Reactive Lymphocytes 2 % (0-10)
[2021-03-28] MEDS: Cyclobenzaprine 10 MG TAB PO PRN (21:30)
[2021-03-29] MEDS: traMADol HCl 50 MG TAB PO PRN ×4 (00:36→20:29)
[2021-03-29] MEDS: Acetaminophen 500 MG TAB PO SCH ×4 (00:36→17:53)
[2021-03-29] MEDS: Gabapentin 300 MG CAP PO SCH ×3 (10:27→20:29)
[2021-03-29] MEDS: Heparin 5,000 UNITS/ML VIAL SC SCH ×3 (10:28→20:25)
[2021-03-29] MEDS: Senokot S 8.6-50 MG TAB PO SCH ×2 (10:29→20:29)
[2021-03-29] MEDS: Polyethylene Glycol 3350 17 GM Packet PO SCH (10:29)
[2021-03-29] MEDS: Cyclobenzaprine 10 MG TAB PO PRN (20:29)
[2021-03-30] MEDS: Acetaminophen 500 MG TAB PO SCH ×3 (00:44→12:38)
[2021-03-30] MEDS: Gabapentin 300 MG CAP PO SCH (09:33)
[2021-03-30] MEDS: Polyethylene Glycol 3350 17 GM Packet PO SCH (09:34)
[2021-03-30] MEDS: Senokot S 8.6-50 MG TAB PO SCH (09:34)
[2021-03-30] MEDS: Heparin 5,000 UNITS/ML VIAL SC SCH (09:35)
[2021-03-30 11:58] VITALS: TEMP 98.7
[2021-03-30] MEDS: traMADol HCl 50 MG TAB PO PRN (12:38)
[2021-03-30 12:43] VITALS: BP 168/96
== END 2021-03-30 12:55 | DRG 481 ==
LOC: ERS 11:11 → ERHOLD 14:02 → SURG B 16:36
PROVIDERS: ADMIT Surgery; ATTEND Surgery
PROC: 0QSC04Z Reposition Left Lower Femur with Internal Fixation Device, Open Approach (ICD-10-PCS; principal; 2021-03-25)
DX: S72.452A Displaced supracondylar fracture without intracondylar extension of lower end of left femur, initial encounter for closed fracture (principal); M97.12XA Periprosthetic fracture around internal prosthetic left knee joint, initial encounter; Z68.42 Body mass index [BMI] 45.0-49.9, adult; N17.9 Acute kidney failure, unspecified; Z20.822 Contact with and (suspected) exposure to COVID-19; M06.9 Rheumatoid arthritis, unspecified; W18.30XA Fall on same level, unspecified, initial encounter; I11.0 Hypertensive heart disease with heart failure; E78.5 Hyperlipidemia, unspecified; M19.90 Unspecified osteoarthritis, unspecified site; Z96.653 Presence of artificial knee joint, bilateral; E66.9 Obesity, unspecified; K21.9 Gastro-esophageal reflux disease without esophagitis; I50.9 Heart failure, unspecified; D50.9 Iron deficiency anemia, unspecified; Z98.51 Tubal ligation status; Z91.040 Latex allergy status
CPT/HCPCS: 36415; 71045; 76000; 80048; 80053; 83735; 84100; 85025; 86850; 86900; 86901; 93005; 93010; 93306; C1713; G0390; J0360; J0690; J1100; J1644; J2270; J2405; J2704; J2765; J3010; J3475; J7050; U0002; U0003; U0005

== ENCOUNTER 2022-01-26 10:35 | Outpatient (CLI) | payer MEDICARE | END 2022-01-26 10:36 | disposition home or self-care (01) | LOC: BICMAMMO 10:35 | PROVIDERS: ATTEND Internal Medicine | DX: Z12.31 Encounter for screening mammogram for malignant neoplasm of breast (principal) | CPT/HCPCS: 77063; 77067 ==